=== PATIENT | female | born 1980 | race African-American/Black ===

== ENCOUNTER 2016-09-08 17:37 | Emergency (ER) | payer BC, OTHER ==
[~2016-09-08] VITALS: Ht 167.6 cm; Wt 90.0 kg
[~2016-09-08 17:37] MED LIST: BC FPOW12; PROV5TAB PO
[2016-09-08 17:38] VITALS: BP 131/85; PULSE 84; RESP 18; TEMP 98.4; O2SAT 100
[2016-09-08] MEDS ORDERED: LIDOCAINE HCL 1% 50 ML VIAL IM ONE (19:30)
[2016-09-08] MEDS ORDERED: cefTRIAXone 250 MG VIAL IM ONE (19:30)
[2016-09-08] MEDS ORDERED: AZITHROMYCIN PWD FOR SUSP 1 GM PACKET PO ONE (19:30)
--- NOTE | 2016-09-08 19:41 | PD ---
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 The patient states her boyfriend was diagnosed with gonorrhea yesterday after he went to the emergency department with symptoms of penile discharge and dysuria. The patient was treated at that time for antibiotics to cover gonorrhea and Chlamydia, she was advised to seek treatment. The patient called her primary physician, however, is unable to be evaluated until next week. The patient denies any current vaginal discharge, lower abdominal pain, dysuria, frequency, or urgency. The patient denies current , states her last menstrual cycle was August 17, 2016. PFSH Past Medical History Hx Anticoagulant Therapy: No Cardiovascular Problems: No Chemotherapy: No Cerebrovascular Accident: No Diabetes: No Diminished Hearing: No Endocrine: No Genitourinary: No Headaches: Yes Immune Disorder: No Reproductive: Yes (FIBROIDS) Respiratory: No ?: Not LMP: AUGUST 2016 : 4 Para: 2 Miscarriage: 1 : 1 Past Surgical History Hysterectomy: No Pacemaker: No Other Surgery: No Social History Alcohol Use: Yes (rare) Tobacco Use: Yes (occ) Substance Use: No Allergies-Medications (Allergen,Severity, Reaction): Coded Allergies: Reglan (Verified Allergy, Severe, SWELLING, 09/08/16) Zofran (Verified Allergy, Severe, Swelling, 09/08/16) swelling of the tongue Reported Meds & Prescriptions Reported Meds & Active Scripts Active Review of Systems Except as stated in HPI: all other systems reviewed are Neg General / Constitutional: No: Fever Cardiovascular: No: Chest Pain or Discomfort Respiratory: No: Shortness of Breath Gastrointestinal: No: Nausea, Vomiting, Abdominal Pain Genitourinary: No: Dysuria, Pelvic Pain, Discharge, Vaginal Bleeding Physical Exam Narrative GENERAL: Awake, alert, pleasant 36-year-old female who appears her stated age and is in no acute respiratory distress. SKIN: Warm and dry. HEAD: Atraumatic. Normocephalic. EYES: No injection or drainage. NECK: Trachea midline. No JVD. GASTROINTESTINAL: Abdomen soft, non-tender, nondistended. No rebound tenderness. No suprapubic tenderness. Back: No CVA tenderness. MUSCULOSKELETAL: No obvious deformities. No clubbing. No cyanosis. No edema. NEUROLOGICAL: Awake and alert. No obvious cranial nerve deficits. Motor grossly within normal limits. Normal speech. PSYCHIATRIC: Appropriate mood and affect; insight and judgment normal. Data Data Last Documented VS Vital Signs Date Time Temp Pulse Resp B/P Pulse Ox O2 Delivery O2 Flow Rate FiO2 09/08/16 17:38 98.4 84 18 131/85 100 Room Air Orders Azithromycin Powd Pack (Zithromax Powd P (09/08/16 19:30) Ceftriaxone Inj (Rocephin Inj) (09/08/16 19:30) Lidocaine 1% Inj (50 Ml) (Xylocaine 1% I (09/08/16 19:30) [facility] Medical Decision Making Medical Screen Exam Complete: Yes Emergency Medical Condition: Yes Medical Record Reviewed: Yes Differential Diagnosis Differential diagnosis includes sexual transmitted infection exposure, cervicitis, PID, vaginitis, UTI. Narrative Course The patient states she has a known exposure to gonorrhea, her boyfriend, was diagnosed yesterday with symptoms of penile discharge and dysuria. Patient is requesting treatment for gonorrhea and chlamydia. I had a discussion with the patient regarding pelvic examination, testing, versus just treating her for known exposure. Patient would prefer just to be treated. Therefore, patient was administered Rocephin and Zithromax. The patient is advised to follow-up with her primary physician and/or the health department as needed. Diagnosis Primary Impression: STD exposure Patient Instructions: General Instructions Additional Instructions: Follow-up with your primary physician and/or the health department. Wear condoms. Return for symptoms. Disposition: 01 DISCHARGE HOME Condition: Stable Errol Whitfield MD Sep 08, 2016 19:41
[2016-09-08 20:28] VITALS: BP 124/82
== END 2016-09-08 20:35 | disposition home or self-care (01) ==
LOC: NEPA 17:37
DX: Z20.2 Contact with and (suspected) exposure to infections with a predominantly sexual mode of transmission (principal); Z72.0 Tobacco use; Z87.42 Personal history of other diseases of the female genital tract
CPT/HCPCS: 96372; 99283; J0696

== ENCOUNTER 2016-11-03 09:01 | Emergency (ER) | payer BC ==
[~2016-11-03] VITALS: Ht 165.1 cm; Wt 87.5 kg
[2016-11-03 09:03] VITALS: BP 128/81; PULSE 97; RESP 16; TEMP 98.7; O2SAT 99
[2016-11-03 09:21] VITALS: BP 119/77; PULSE 95; RESP 18; O2SAT 100
[2016-11-03] MEDS ORDERED: SODIUM CHLOR 0.9% 1000 ML INJ 1,000 ML IV ONE (09:30)
[2016-11-03] MEDS ORDERED: PROCHLORPERAZINE INJ 10 MG/2 ML VIAL IV PUSH ONE (09:30)
--- NOTE | 2016-11-03 09:32 | PD ---
HPI Chief Complaint: GI Complaint Time Seen by Provider: 09:21 Travel History International Travel<30 days: No Contact w/Intl Traveler<30days: No Traveled to known affect area: No History of Present Illness HPI The patient was seen and examined in the presence of the nurse. This patient complains of nausea and vomiting. Duration 3 days. Severity is moderate. No diarrhea. No fever or abdominal or pelvic pain. She has not had her last menstrual period. No ill contacts. No alleviating factors. PFSH Past Medical History Hx Anticoagulant Therapy: No Cardiovascular Problems: No Chemotherapy: No Cerebrovascular Accident: No Diabetes: No Diminished Hearing: No Endocrine: No Gastrointestinal Disorders: No Genitourinary: No Headaches: Yes Immune Disorder: No Reproductive: Yes (FIBROIDS, OVARIAN CYSTS) Respiratory: No ?: Unknown LMP: SEPTEMBER 2016 : 4 Para: 2 Miscarriage: 1 : 1 Past Surgical History Surgical History: No Previous Surgery Hysterectomy: No Pacemaker: No Other Surgery: No Social History Alcohol Use: Yes (rare) Tobacco Use: No Substance Use: No Allergies-Medications (Allergen,Severity, Reaction): Coded Allergies: Reglan (Verified Allergy, Severe, SWELLING, 11/03/16) Zofran (Verified Allergy, Severe, Swelling, 11/03/16) swelling of the tongue Reported Meds & Prescriptions Reported Meds & Active Scripts Active No Active Prescriptions or Reported Medications Review of Systems General / Constitutional: No: Fever Eyes: No: Visual changes HENT: No: Headaches Cardiovascular: No: Chest Pain or Discomfort Respiratory: No: Shortness of Breath Gastrointestinal: Positive: Nausea, Vomiting, No: Abdominal Pain Genitourinary: No: Dysuria Musculoskeletal: No: Pain Skin: No Rash Neurologic: No: Weakness Psychiatric: No: Depression Endocrine: No: Polydipsia Hematologic/Lymphatic: No: Easy Bruising Physical Exam Narrative GENERAL: Well-nourished, well-developed patient in no apparent distress. SKIN: Focused skin assessment reveals no rash and nodules. Skin is Warm and dry. HEAD: Atraumatic. Normocephalic. EYES: Pupils equal and round. No scleral icterus. No injection or drainage. ENT: No nasal bleeding or discharge. Mucous membranes pink and moist. NECK: Trachea midline. No JVD. CARDIOVASCULAR: Regular rate and rhythm. No murmur appreciated. RESPIRATORY: No accessory muscle use. Clear to auscultation. Breath sounds equal bilaterally. GASTROINTESTINAL: Abdomen soft, non-tender, nondistended. Hepatic and splenic margins not palpable. MUSCULOSKELETAL: No obvious deformities. No clubbing. No cyanosis. No edema. NEUROLOGICAL: Awake and alert. No obvious cranial nerve deficits. Motor grossly within normal limits. Normal speech. PSYCHIATRIC: Appropriate mood and affect; insight and judgment normal. Data Data Last Documented VS Vital Signs Date Time Temp Pulse Resp B/P Pulse Ox O2 Delivery O2 Flow Rate FiO2 11/03/16 09:21 95 18 119/77 100 Room Air 11/03/16 09:03 98.7 Orders Sodium Chlor 0.9% 1000 Ml Inj (Ns 1000 M (11/03/16 09:30) Prochlorperazine Inj (Compazine Inj) (11/03/16 09:30) Iv Access Insert/Monitor (11/03/16 09:29) Complete Blood Count With Diff (11/03/16 09:29) Basic Metabolic Panel (Bmp) (11/03/16 09:29) Ed Urine Pregnancytest Poc (11/03/16 09:29) Protein Corrected Calcium(Pcc) (11/03/16 10:07) Labs Laboratory Tests Test 11/03/16 11/03/16 09:31 10:07 White Blood Count 7.4 TH/MM3 Red Blood Count 4.40 MIL/MM3 Hemoglobin 12.2 GM/DL Hematocrit 37.0 % Mean Corpuscular Volume 84.0 FL Mean Corpuscular Hemoglobin 27.8 PG Mean Corpuscular Hemoglobin 33.1 % Concent Red Cell Distribution Width 16.4 % Platelet Count 314 TH/MM3 Mean Platelet Volume 9.0 FL Neutrophils (%) (Auto) 63.0 % Lymphocytes (%) (Auto) 29.2 % Monocytes (%) (Auto) 6.8 % Eosinophils (%) (Auto) 0.6 % Basophils (%) (Auto) 0.4 % Neutrophils # (Auto) 4.7 TH/MM3 Lymphocytes # (Auto) 2.2 TH/MM3 Monocytes # (Auto) 0.5 TH/MM3 Eosinophils # (Auto) 0.0 TH/MM3 Basophils # (Auto) 0.0 TH/MM3 CBC Comment DIFF FINAL Differential Comment Sodium Level 139 MEQ/L Potassium Level 3.3 MEQ/L Chloride Level 109 MEQ/L Carbon Dioxide Level 20.7 MEQ/L Anion Gap 9 MEQ/L Blood Urea Nitrogen 5 MG/DL Creatinine 0.49 MG/DL Estimat Glomerular Filtration 175 ML/MIN Rate Random Glucose 109 MG/DL Calcium Level 7.4 MG/DL Protein Corrected Calcium 7.8 MG/DL Total Protein 6.3 GM/DL MDM Medical Decision Making Medical Screen Exam Complete: Yes Emergency Medical Condition: Yes Medical Record Reviewed: Yes Differential Diagnosis Dehydration, hyperemesis of , electrolyte abnormality, gastroenteritis , food poisoning Narrative Course I have reviewed the patient's electronic medical record. Her last visit here was August 2016 for STD exposure IV placed I gave her 1 L normal saline IV and 10 mg IV Compazine CBC reasonably normal Metabolic profile shows minimal abnormalities such as hypocalcemia that is minor is positive Abdomen is soft and benign and nontender Looks clinically euvolemic No vomiting while here Stable for outpatient DOG BEAUTICIAN care Additional Instructions: Follow-up with DOG BEAUTICIAN Small frequent bland meals Med/Other Pt SpecificInfo: Other Scripts No Active Prescriptions or Reported Meds Disposition: DISCHARGE HOME Condition: Stable Jimenez Mena MD November 03, 2016 09:32
[2016-11-03 09:46] LABS: AUTOMATED NEUTROPHIL # 4.7 TH/MM3 (1.8-7.7); BASOPHIL % 0.4 % (0.0-2.0); EOSINOPHIL % 0.6 % (0.0-4.0); HEMO FLAGS DIFF FINAL; LYMPH % 29.2 % (9.0-44.0); LYMPHOCYTE # 2.2 TH/MM3 (1.0-4.8); MEAN CORPUSCULAR HEMOGLOBIN 27.8 PG (27.0-34.0); MEAN CORPUSCULAR HGB CONC 33.1 % (32.0-36.0); MONO % 6.8 % (0.0-8.0); PLATELET COUNT 314 TH/MM3 (150-450); RED CELL DISTRIBUTION WIDTH 16.4 % (11.6-17.2); WHITE BLOOD COUNT 7.4 TH/MM3 (4.0-11.0)
[2016-11-03 10:49] LABS: BICARBONATE 20.7 MEQ/L (21.0-32.0); POTASSIUM 3.3 MEQ/L (3.5-5.1)
[2016-11-03 11:04] LABS: CALCIUM-PROTEIN CORRECTED 7.8 MG/DL (8.5-10.1)
== END 2016-11-03 13:59 | disposition home or self-care (01) ==
LOC: NEPE 09:01
DX: O21.9 Vomiting of pregnancy, unspecified (principal); Z3A.00 Weeks of gestation of pregnancy not specified
CPT/HCPCS: 80048; 84155; 84703; 85025; 96374; 99284; J0780; J7030

== ENCOUNTER 2016-11-09 16:44 | Emergency (ER) | payer BC ==
[~2016-11-09] VITALS: Ht 162.6 cm; Wt 87.0 kg
[2016-11-09 16:46] VITALS: BP 132/84; PULSE 112; RESP 20; TEMP 99.1; O2SAT 100
--- NOTE | 2016-11-09 17:07 | PD ---
HPI Chief Complaint: Related Problem Time Seen by Provider: 17:07 Travel History International Travel<30 days: No Contact w/Intl Traveler<30days: No Traveled to known affect area: No History of Present Illness HPI 36-year-old female presents to the emergency department for evaluation a right lower quadrant pain, cramping, and vaginal bleeding. Patient states 1 week ago it was confirmed that she was . This is her third . Patient states that she began having thick red blood clots yesterday and then today she noticed they were dark red/black. His concern because she has never bled with pregnancies in the past. She is also having a sharp cramping right lower quadrant pain. Denies any fever or chills. No urinary symptoms. No change in bowel habits. Patient has no other symptoms to report. PFSH Past Medical History Hx Anticoagulant Therapy: No Cardiovascular Problems: No Chemotherapy: No Cerebrovascular Accident: No Diabetes: No Diminished Hearing: No Endocrine: No Gastrointestinal Disorders: No Genitourinary: No Headaches: Yes Immune Disorder: No Reproductive: Yes (FIBROIDS, OVARIAN CYSTS) Respiratory: No ?: : 4 Para: 2 Miscarriage: 1 : 1 Past Surgical History Hysterectomy: No Pacemaker: No Other Surgery: No Social History Alcohol Use: Yes (rare) Tobacco Use: No Substance Use: No Allergies-Medications (Allergen,Severity, Reaction): Coded Allergies: Reglan (Verified Allergy, Severe, SWELLING, 11/09/16) Zofran (Verified Allergy, Severe, Swelling, 11/09/16) swelling of the tongue Reported Meds & Prescriptions Reported Meds & Active Scripts Active No Active Prescriptions or Reported Medications Review of Systems Except as stated in HPI: all other systems reviewed are Neg Physical Exam Narrative GENERAL: Well-nourished female patient, in no acute distress SKIN: Focused skin assessment warm/dry. HEAD: Atraumatic. Normocephalic. EYES: Pupils equal and round. No scleral icterus. No injection or drainage. ENT: No nasal bleeding or discharge. Mucous membranes pink and moist. NECK: Trachea midline. No JVD. CARDIOVASCULAR: Tachycardic rate and rhythm. No murmur appreciated. RESPIRATORY: No accessory muscle use. Clear to auscultation. Breath sounds equal bilaterally. GASTROINTESTINAL: Abdomen soft, nondistended suprapubic and right lower quadrant tenderness to palpation. No rebound tenderness. Mild guarding.. Hepatic and splenic margins not palpable. MUSCULOSKELETAL: No obvious deformities. No clubbing. No cyanosis. No edema. NEUROLOGICAL: Awake and alert. No obvious cranial nerve deficits. Motor grossly within normal limits. Normal speech. PSYCHIATRIC: Appropriate mood and affect; insight and judgment normal. Data Data Last Documented VS Vital Signs Date Time Temp Pulse Resp B/P Pulse Ox O2 Delivery O2 Flow Rate FiO2 11/09/16 19:15 94 18 110/80 100 Room Air 11/09/16 16:46 99.1 Orders Basic Metabolic Panel (Bmp) (11/09/16 17:08) Beta Hcg (Quant/Titer) (11/09/16 17:08) Complete Blood Count With Diff (11/09/16 17:08) Prothrombin Time / Inr (Pt) (11/09/16 17:08) Act Partial Throm Time (Ptt) (11/09/16 17:08) Urinalysis - C+S If Indicated (11/09/16 17:08) Iv Access Insert/Monitor (11/09/16 17:08) Sodium Chlor 0.9% 1000 Ml Inj (Ns 1000 M (11/09/16 17:08) Ed Urine Pregnancytest Poc (11/09/16 17:08) Complete Rh (11/09/16 17:08) Urine Culture (11/09/16 17:00) Us Pelvis (Ques Preg/Ectopic) (11/09/16 ) Labs Laboratory Tests Test 11/09/16 11/09/16 17:00 17:15 Urine Color YELLOW Urine Turbidity HAZY Urine pH 6.0 Urine Specific [place] 1.031 Urine Protein 100 mg/dL Urine Glucose (UA) NEG mg/dL Urine Ketones TRACE mg/dL Urine Occult Blood MOD Urine Nitrite NEG Urine Bilirubin NEG Urine Urobilinogen 2.0 MG/DL Urine Leukocyte Esterase MOD Urine RBC 4 /hpf Urine WBC 11 /hpf Urine Squamous Epithelial 9 /hpf Cells Urine Bacteria MANY /hpf Urine Hyaline Casts 16 /lpf Urine Mucus MOD /lpf Microscopic Urinalysis Comment CULTURE INDICATED White Blood Count 9.2 TH/MM3 Red Blood Count 4.45 MIL/MM3 Hemoglobin 12.3 GM/DL Hematocrit 37.6 % Mean Corpuscular Volume 84.4 FL Mean Corpuscular Hemoglobin 27.6 PG Mean Corpuscular Hemoglobin 32.7 % Concent Red Cell Distribution Width 16.2 % Platelet Count 299 TH/MM3 Mean Platelet Volume 8.5 FL Neutrophils (%) (Auto) 63.1 % Lymphocytes (%) (Auto) 28.5 % Monocytes (%) (Auto) 7.5 % Eosinophils (%) (Auto) 0.3 % Basophils (%) (Auto) 0.6 % Neutrophils # (Auto) 5.8 TH/MM3 Lymphocytes # (Auto) 2.6 TH/MM3 Monocytes # (Auto) 0.7 TH/MM3 Eosinophils # (Auto) 0.0 TH/MM3 Basophils # (Auto) 0.1 TH/MM3 CBC Comment DIFF FINAL Differential Comment Prothrombin Time 11.1 SEC Prothromb Time International 1.0 RATIO Ratio Activated Partial 29.0 SEC Thromboplast Time Sodium Level 134 MEQ/L Potassium Level 3.5 MEQ/L Chloride Level 101 MEQ/L Carbon Dioxide Level 25.1 MEQ/L Anion Gap 8 MEQ/L Blood Urea Nitrogen 6 MG/DL Creatinine 0.77 MG/DL Estimat Glomerular Filtration 104 ML/MIN Rate Random Glucose 106 MG/DL Calcium Level 9.1 MG/DL Human Chorionic Gonadotropin, [address]36 MIU/ML Quant Blood Type A POSITIVE Rho(D) Type POSITIVE MDM Medical Decision Making Medical Screen Exam Complete: Yes Emergency Medical Condition: Yes Medical Record Reviewed: Yes Differential Diagnosis Threatened miscarriage versus missed versus ectopic versus postcoital bleeding Narrative Course 36-year-old female presents to emergency department for evaluation of vaginal bleeding a right lower quadrant pain. Patient appears without distress. She is utterly tachycardic. She does have right lower quadrant tenderness. Lab work is ordered. Blood is in the vaginal vault. Laboratory Tests Test 11/09/16 11/09/16 17:00 17:15 Urine Color YELLOW Urine Turbidity HAZY Urine pH 6.0 Urine Specific [place] 1.031 Urine Protein 100 mg/dL Urine Glucose (UA) NEG mg/dL Urine Ketones TRACE mg/dL Urine Occult Blood MOD Urine Nitrite NEG Urine Bilirubin NEG Urine Urobilinogen 2.0 MG/DL Urine Leukocyte Esterase MOD Urine RBC 4 /hpf Urine WBC 11 /hpf Urine Squamous Epithelial 9 /hpf Cells Urine Bacteria MANY /hpf Urine Hyaline Casts 16 /lpf Urine Mucus MOD /lpf Microscopic Urinalysis Comment CULTURE INDICATED White Blood Count 9.2 TH/MM3 Red Blood Count 4.45 MIL/MM3 Hemoglobin 12.3 GM/DL Hematocrit 37.6 % Mean Corpuscular Volume 84.4 FL Mean Corpuscular Hemoglobin 27.6 PG Mean Corpuscular Hemoglobin 32.7 % Concent Red Cell Distribution Width 16.2 % Platelet Count 299 TH/MM3 Mean Platelet Volume 8.5 FL Neutrophils (%) (Auto) 63.1 % Lymphocytes (%) (Auto) 28.5 % Monocytes (%) (Auto) 7.5 % Eosinophils (%) (Auto) 0.3 % Basophils (%) (Auto) 0.6 % Neutrophils # (Auto) 5.8 TH/MM3 Lymphocytes # (Auto) 2.6 TH/MM3 Monocytes # (Auto) 0.7 TH/MM3 Eosinophils # (Auto) 0.0 TH/MM3 Basophils # (Auto) 0.1 TH/MM3 CBC Comment DIFF FINAL Differential Comment Prothrombin Time 11.1 SEC Prothromb Time International 1.0 RATIO Ratio Activated Partial 29.0 SEC Thromboplast Time Sodium Level 134 MEQ/L Potassium Level 3.5 MEQ/L Chloride Level 101 MEQ/L Carbon Dioxide Level 25.1 MEQ/L Anion Gap 8 MEQ/L Blood Urea Nitrogen 6 MG/DL Creatinine 0.77 MG/DL Estimat Glomerular Filtration 104 ML/MIN Rate Random Glucose 106 MG/DL Calcium Level 9.1 MG/DL Human Chorionic Gonadotropin, [address] MIU/ML Quant Blood Type A POSITIVE Rho(D) Type POSITIVE Single viable intrauterine at 7 weeks 6 days gestational age. Subchorionic hemorrhage demonstrated. Left ovarian cyst, likely corpus luteal cyst. No evidence of ectopic. Patient is discharged him to follow-up with OB/ OCCUPATIONAL HEALTH NURSE MANAGER. She agrees to return immediately with any acute worsening symptoms. Diagnosis Primary Impression: Qualified Code: Z3A.01 - Less than 8 weeks gestation of Additional Impression: Subchorionic hemorrhage in first trimester Referrals: Academic Affairs Manager Patient Instructions: First Trimester (ED), General Instructions, Subchorionic Hemorrhage (ED) Departure Forms: Tests/Procedures, Work Release Enter return to work date: November 13, 2016 Additional Instructions: Pelvic rest Avoid heavy lifting, bending, twisting Follow up with your FILM SOUND COORDINATOR Return to ED with any acute worsening of symptoms Med/Other Pt SpecificInfo: No Change to Meds Scripts No Active Prescriptions or Reported Meds Disposition: DISCHARGE HOME Condition: Stable MonrealAyleen guillen MACARIO November 09, 2016 17:07
[2016-11-09] MEDS ORDERED: SODIUM CHLOR 0.9% 1000 ML INJ 1,000 ML IV SCH (17:08)
[2016-11-09 17:35] LABS: AUTOMATED NEUTROPHIL # 5.8 TH/MM3 (1.8-7.7); BASOPHIL # 0.1 TH/MM3 (0-0.2); BASOPHIL % 0.6 % (0.0-2.0); EOSINOPHIL % 0.3 % (0.0-4.0); HEMATOCRIT 37.6 % (35.0-46.0); HEMO FLAGS DIFF FINAL; LYMPH % 28.5 % (9.0-44.0); LYMPHOCYTE # 2.6 TH/MM3 (1.0-4.8); MEAN CELL VOLUME 84.4 FL (80.0-100.0); MEAN CORPUSCULAR HEMOGLOBIN 27.6 PG (27.0-34.0); MEAN CORPUSCULAR HGB CONC 32.7 % (32.0-36.0); MONO % 7.5 % (0.0-8.0); NEUT % 63.1 % (16.0-70.0); PLATELET COUNT 299 TH/MM3 (150-450); RED BLOOD COUNT 4.45 MIL/MM3 (4.00-5.30); RED CELL DISTRIBUTION WIDTH 16.2 % (11.6-17.2); WHITE BLOOD COUNT 9.2 TH/MM3 (4.0-11.0)
[2016-11-09 17:43] LABS: BACTERIA, URINE MANY /hpf; BLOOD, URINE MOD (NEG); COMMENT (UR) CULTURE INDICATED; CULTURE IF INDICATED CULTURE INDICATED; GLUCOSE,URINE NEG (NEG); HYALINE CAST, URINE 16 /lpf (RARE); KETONE, URINE TRACE mg/dL (NEG); MUCUS URINE MOD /lpf (OCC); NITRITE,URINE NEG (NEG); SQUAMOUS EPITHELIAL CELL URINE 9 /hpf (0-5); URINE COLOR YELLOW (YELLW/STRAW)
[2016-11-09 17:50] LABS: BICARBONATE 25.1 MEQ/L (21.0-32.0); POTASSIUM 3.5 MEQ/L (3.5-5.1)
[2016-11-09 17:57] LABS: PROTHROMBIN TIME - PATIENT 11.1 SEC (9.8-11.6)
[2016-11-09 19:15] VITALS: BP 110/80; PULSE 94; RESP 18; O2SAT 100
--- NOTE | 2016-11-09 21:04 | RADRPT ---
EXAM DATE/TIME: 11/09/2016 19:59 [facility] COMPARISON: No previous studies available for comparison. INDICATIONS : Bleeding and pelvic pain with . LAB(S): Beta-hC MEDICAL HISTORY : . Uterine fibroids. Ovarian cysts. Headaches. Miscarriage. SURGICAL HISTORY : None. ENCOUNTER: Initial ACUITY: 1 day PAIN SCORE: 7/10 LOCATION: Bilateral pelvis MEASUREMENTS: UTERUS: 10.7 x 7.3 x 6.1 cm ENDOMETRIAL STRIPE: >20 mm RIGHT OVARY: 2.7 x 2.1 x 2.1 cm LEFT OVARY: 5.3 x 3.6 x 3.7 cm FREE FLUID: No CROWN RUMP LENGTH: 1.5 cm = 7 WKS 6 DAYS FHR: 163 BPM FINDINGS: UTERUS: Yolk sac, gestational sac and pole noted. Many-rump likely 1.5 cm corresponds to a gestational age of 7 weeks 6 days. heart tones are demonstrated. There is an approximately 3.5 x 1.4 x 2.8 cm subchorionic hemorrhage. RIGHT OVARY: Ovary contains no mass or significant cystic lesion. LEFT OVARY: 3.2 x 2.6 x 2.4 cm cyst, presumably corpus luteal cyst. MISCELLANEOUS: No free fluid. CONCLUSION: 1. Single, viable intrauterine at 7 weeks 6 days gestational age. Subchorionic hemorrhage d emonstrated. 2. Left ovarian cyst, most likely corpus luteal cyst. No evidence of ectopic. Oscar Earl MD on November 09, 2016 at 21:01 Board Certified Radiologist. This report was verified electronically.
== END 2016-11-09 21:38 | disposition home or self-care (01) ==
LOC: NEPD 16:44
DX: O20.8 Other hemorrhage in early pregnancy (principal); R10.31 Right lower quadrant pain; Z3A.01 Less than 8 weeks gestation of pregnancy
CPT/HCPCS: 76700; 80048; 81001; 84702; 84703; 85025; 85610; 85730; 87086; 99285; J7030

== ENCOUNTER 2017-02-07 09:13 | Observation (INO) | payer MEDICAID ==
[~2017-02-07] VITALS: Ht 160 cm; Wt 89.0 kg
[~2017-02-07 09:13] MED LIST changes: -BC FPOW12; +PNV-TAB PO; -PROV5TAB PO
[2017-02-07 13:00] VITALS: RESP 20; TEMP 98.5
[2017-02-07] MEDS: LACTATED RINGER'S 1000 ML INJ 1,000 ML IV SCH ×2 (13:00→23:00)
--- NOTE | 2017-02-07 13:01 | PD.OB.ANTE ---
Objective Physical Exam GENERAL: Well-nourished, well-developed patient. CARDIOVASCULAR: Regular rate and rhythm without murmurs, gallops, or rubs. RESPIRATORY: Breath sounds equal bilaterally. No accessory muscle use. ABDOMEN/GI: Abdomen soft, non-tender. Fundus: [-] GENITOURINARY: External Genitalia: intact and normal in appearance Cervix: [-] Dilatation: [-] Effacement: [-] Station: [-] Presentation: [-] Membranes: [-] Uterine Contractions: [-] FHT's: Category: [-] Baseline: [-] Reactive: [-] Variability: [-] Decels: [-] EXTREMITIES: No cyanosis or edema, non-tender, without signs of DVT. Eko,Penelope Julien MD R2 Feb 07, 2017 13:01
[2017-02-07 13:05] VITALS: BP 103/83; PULSE 96
[2017-02-07 13:20] LABS: AUTOMATED NEUTROPHIL # 6.7 TH/MM3 (1.8-7.7); BASOPHIL % 0.2 % (0.0-2.0); EOSINOPHIL # 0.2 TH/MM3 (0-0.4); HEMATOCRIT 31.2 % (35.0-46.0); HEMO FLAGS DIFF FINAL; LYMPHOCYTE # 2.4 TH/MM3 (1.0-4.8); MEAN CELL VOLUME 88.8 FL (80.0-100.0); MEAN CORPUSCULAR HEMOGLOBIN 28.7 PG (27.0-34.0); MEAN CORPUSCULAR HGB CONC 32.3 % (32.0-36.0); MONO % 6.8 % (0.0-8.0); PLATELET COUNT 271 TH/MM3 (150-450); RED BLOOD COUNT 3.52 MIL/MM3 (4.00-5.30); RED CELL DISTRIBUTION WIDTH 15.2 % (11.6-17.2)
[2017-02-07 13:27] LABS: BLOOD, URINE NEG (NEG); COMMENT (UR) CULT NOT INDICATED; CULTURE IF INDICATED CULT NOT INDICATED; GLUCOSE,URINE NEG (NEG); KETONE, URINE NEG (NEG); NITRITE,URINE NEG (NEG); PH, URINE 7.5 (5.0-8.5); URINE COLOR YELLOW (YELLW/STRAW)
[2017-02-07 13:44] LABS: BICARBONATE 24.9 MEQ/L (21.0-32.0); POTASSIUM 3.9 MEQ/L (3.5-5.1)
--- NOTE | 2017-02-07 13:55 | HHI.HP ---
HPI Chief Complaint Incompetent cervix Date Seen: Feb 07, 2017 Travel History International Travel<30 Days: No Contact w/Intl Traveler<30Days: No Known Affected Area: No History of Present Illness HPI Pt is a 36 y/o A3 at 20/2 weeks gestation that was transferred to the [place] [facility] ED from OB diagnostics for possible cervical cerclage. The pt was last seen by her OB provider, Dr. Moran, at the [facility] on 01/19/17 who determined that her cervix was dilated to 1-2 cm. On further questioning and EMR review, it was discovered that the pt had a uterine inversion in 2007 after a spontaneous vaginal delivery. She had to be moved to the OR for inversion. During the procedure, the cervix was stabilized with ring forceps and was sutured for tearing that occurred. The patient presented for her OB diagnostics appointment with MFM specialist, Dr. Sanon, where feet were found in the endocervical canal surrounded by membrane on ultrasound. Dr. Sanon contacted the pt's OB provider with strong recommendation for a cervical cerclage. History Past Medical History Medical History: Denies Significant Hx Obstetric History Obstetric History 2 fullterm 2 abortions 1 miscarriage Past Surgical History Narrative Surgical Surgical uterine inversion after spontaneous vaginal delivery of second child Family History Narrative Family History No family history of a bleeding disorder Maternal grandfather had diabetes Social History Alcohol Use: No Tobacco Use: No Substance Abuse: No Allergies-Medications (Allergen,Severity, Reaction): Coded Allergies: metoclopramide (Unverified Allergy, Severe, SWELLING, 01/30/17) ondansetron (Unverified Allergy, Severe, Swelling, 01/30/17) swelling of the tongue Home Meds Active Scripts Vit W/ Ferrous Fumara (Pnv-Select 27-0.6-0.4 mg) 1 Tab Tab, 1 TAB PO DAILY, #30 BOTTLE 11 Refills Prov:Penelope Moran MD R2 01/22/17 Review of Systems Except as stated in HPI: all other systems reviewed are Neg General / Constitutional: No: Fever, Chills Eyes: No: Blurred Vision, Visual changes HENT: No: Headaches Cardiovascular: No: Chest Pain or Discomfort Respiratory: No: Short of Breath Gastrointestinal: No: Nausea, Vomiting, Abdominal Pain Genitourinary: Pelvic Pain (occasional suprapubic pain ), No: Dysuria, Discharge, Vaginal Bleeding Physical Exam Vital Signs Date Time Temp Pulse Resp B/P (MAP) Pulse Ox O2 Delivery O2 Flow Rate FiO2 02/07/17 13:05 96 103/83 (90) 02/07/17 13:00 98.5 20 Narrative GENERAL: Well-nourished, well-developed patient. SKIN: Warm and dry. HEAD: Normocephalic and atraumatic. EYES: No scleral icterus. No injection or drainage. ENT: No nasal drainage noted. Mucous membranes pink. Airway patent. NECK: Supple, trachea midline. No JVD. CARDIOVASCULAR: Regular rate and rhythm without murmurs, gallops, or rubs. RESPIRATORY: Breath sounds equal bilaterally. No accessory muscle use. ABDOMEN/GI: Abdomen soft, non-tender, bowel sounds present, no rebound, no guarding Gravid to 20 weeks size GENITOURINARY: FHT's: 140's EXTREMITIES: No cyanosis or edema. BACK: Nontender without obvious deformity. No CVA tenderness. NEUROLOGICAL: Awake and alert. Motor and sensory grossly within normal limits. Five out of 5 muscle strength in all muscle groups. Normal speech. Caprini VTE Risk Assessment Caprini VTE Risk Assessment: Mod/High Risk (score >= 2) Caprini Risk Assessment Model Point Value = 1 Point Value = 2 Point Value = 3 Point Value = 5 Age 41-60 Minor surgery BMI > 25 kg/m2 Swollen legs Varicose veins or History of unexplained or recurrent spontaneous Oral contraceptives or hormone replacement Sepsis (< 1 month) Serious lung disease, including pneumonia (< 1 month) Abnormal pulmonary function Acute myocardial infarction Congestive heart failure (< 1 month) History of inflammatory bowel disease Medical patient at bed rest Age 61-74 Arthroscopic surgery Major open surgery (> 45 min) Laparoscopic surgery (> 45 min) Malignancy Confined to bed (> 72 hours) Immobilizing plaster cast Central venous access Age >= 75 History of VTE Family history of VTE Factor V Leiden Prothrombin [id number] Lupus anticoagulant Anticardiolipin antibodies Elevated serum homocysteine Heparin-induced thrombocytopenia Other congenital or acquired thrombophilia Stroke (< 1 month) Elective arthroplasty Hip, pelvis, or leg fracture Acute spinal cord injury (< 1 month) Prophylaxis Regimen Total Risk Factor Score Risk Level Prophylaxis Regimen 0-1 Low Early ambulation 2 Moderate Order ONE of the following: *Sequential Compression Device (SCD) *Heparin 5000 units SQ BID 3-4 Higher Order ONE of the following medications: *Heparin 5000 units SQ TID *Enoxaparin/Lovenox 40 mg SQ daily (WT < 150 kg, CrCl > 30 mL/min) *Enoxaparin/Lovenox 30 mg SQ daily (WT < 150 kg, CrCl > 10-29 mL/min) *Enoxaparin/Lovenox 30 mg SQ BID (WT < 150 kg, CrCl > 30 mL/min) AND/OR *Sequential Compression Device (SCD) 5 or more Highest Order ONE of the following medications: *Heparin 5000 units SQ TID (Preferred with Epidurals) *Enoxaparin/Lovenox 40 mg SQ daily (WT < 150 kg, CrCl > 30 mL/min) *Enoxaparin/Lovenox 30 mg SQ daily (WT < 150 kg, CrCl > 10-29 mL/min) *Enoxaparin/Lovenox 30 mg SQ BID (WT < 150 kg, CrCl > 30 mL/min) AND *Sequential Compression Device (SCD) Data Data Vital Signs Reviewed: Yes Orders Orders Us Ob Complete/Level Ii W/Tv (02/07/17 ) Code Status (02/07/17 12:52) Vital Signs (Adult) .Per protocol (02/07/17 12:52) Complete Blood Count With Diff (02/07/17 12:52) Urinalysis - C+S If Indicated (02/07/17 12:52) Type And Screen (02/07/17 12:52) Specimen To Be Collected PRN (02/07/17 12:52) Prothrombin Time / Inr (Pt) (02/07/17 12:52) Basic Metabolic Panel (Bmp) (02/07/17 12:52) ^ Other Nursing Orders (02/07/17 12:52) Indomethacin (Indocin) (02/07/17 13:00) Lactated Ringer's 1000 Ml Inj (Lr 1000 M (02/07/17 13:00) Place In Observation (02/07/17 ) Activity Bed Rest (02/07/17 13:01) Diet Regular Basic (02/07/17 Lunch) Us Ob Limited (02/08/17 06:00) Clindamycin Inj (Cleocin Inj) (02/07/17 13:15) Npo After Midnight W/ Po Meds (02/07/17 Lunch) Urinary Catheter Management CORA.Q8H (02/07/17 13:14) Labs Laboratory Tests Test 02/07/17 12:30 02/07/17 12:57 White Blood Count 10.0 Red Blood Count 3.52 Hemoglobin 10.1 Hematocrit 31.2 Mean Corpuscular Volume 88.8 Mean Corpuscular Hemoglobin 28.7 Mean Corpuscular Hemoglobin Concent 32.3 Red Cell Distribution Width 15.2 Platelet Count 271 Mean Platelet Volume 8.2 Neutrophils (%) (Auto) 67.0 Lymphocytes (%) (Auto) 24.0 Monocytes (%) (Auto) 6.8 Eosinophils (%) (Auto) 2.0 Basophils (%) (Auto) 0.2 Neutrophils # (Auto) 6.7 Lymphocytes # (Auto) 2.4 Monocytes # (Auto) 0.7 Eosinophils # (Auto) 0.2 Basophils # (Auto) 0.0 CBC Comment DIFF FINAL Differential Comment Assessment/Plan Assessment and Plan 36 y/o A3 at 20/2 weeks gestation being admitted on observation for possible cervical cerclage secondary to an incompetent cervix. Dr. Jones, the PHARMACEUTICAL SPECIALTY REPRESENTATIVE specialist environmental engineering intern, has been consulted and has provided recommendations for further management. Plan -Admit on observation to OB hospitalist team, Dr. Jones consulting -Bed rest on trendelenburg position -No bimanual or speculum cervical exams -Insert vázquez catether -Indomethacin 25mg PO q6H to reduce amniotic fluid -Cleocin 900mg Q8H -LR at 125 ml/hr -Type and screen -CBC, BMP, UA with reflex culture -Regular adult diet -NPO at midnight for possible procedure in the am -Repeat ultrasound 24hrs after original ultrasound -SCDs for DVT prophylaxis Discharge Planning Anticipate discharge in 1-2 days Penelope Moran MD R2 Feb 07, 2017 13:55
[2017-02-07] MEDS: CLINDAMYCIN INJ 900 MG in SODIUM CHLORIDE 0.9% INJ 100 ML IV SCH ×2 (14:06→22:30)
[2017-02-07] MEDS: INDOMETHACIN 25 MG CAP PO SCH ×2 (14:06→20:30)
[2017-02-07 17:35] VITALS: BP 107/68; PULSE 108; RESP 18; TEMP 98.3
[2017-02-07 19:23] VITALS: BP 124/74; PULSE 107
[2017-02-07 19:24] VITALS: TEMP 98.7
[2017-02-08] VITALS (8 sets, daily range): BP systolic 99–129; BP diastolic 61–71; PULSE 99–106; RESP 16–19; TEMP 98.5–99.3
[2017-02-08] MEDS: INDOMETHACIN 25 MG CAP PO SCH ×4 (02:03→19:41)
[2017-02-08] MEDS: CLINDAMYCIN INJ 900 MG in SODIUM CHLORIDE 0.9% INJ 100 ML IV SCH ×3 (05:57→21:58)
--- NOTE | 2017-02-08 08:23 | PD.OB.ANTE ---
Subjective Diagnosis: (1) Incompetent cervix Diagnosis: Principal Interval History Pt did well overnight in trendelenburg position. She denied headache or shortness of breath. She feels less suprapubic pressure.No clinical signs of systemic infection. Only complaint this morning is lateral lower abdominal pain on both sides. On further discussion with the patient and pt's nurse, we found out that she is currently having housing issues and will benefit from social work lecturer. Antepartum ROS: Reports: movement normal, Denies: Loss of fluid, Vaginal bleeding, Contractions Objective Vital Signs Vital Signs Date Time Temp Pulse Resp B/P (MAP) Pulse Ox O2 Delivery O2 Flow Rate FiO2 02/08/17 07:45 98.5 18 02/08/17 07:34 99 110/62 (78) 02/08/17 02:04 99.3 16 02/08/17 02:04 106 116/61 (79) 02/07/17 19:24 98.7 02/07/17 19:23 107 124/74 (91) 02/07/17 17:35 98.3 18 02/07/17 17:35 108 107/68 (81) 02/07/17 13:05 96 103/83 (90) 02/07/17 13:00 98.5 20 Lab & Micro Results Test 02/07/17 12:30 02/07/17 12:57 Urine Color YELLOW Urine Turbidity CLEAR Urine pH 7.5 Urine Specific [place] 1.018 Urine Protein NEG mg/dL Urine Glucose (UA) NEG mg/dL Urine Ketones NEG mg/dL Urine Occult Blood NEG Urine Nitrite NEG Urine Bilirubin NEG Urine Urobilinogen LESS THAN 2.0 MG/DL Urine Leukocyte Esterase NEG Urine RBC 1 /hpf Urine WBC 1 /hpf Microscopic Urinalysis Comment CULT NOT INDICATED White Blood Count 10.0 TH/MM3 Red Blood Count 3.52 MIL/MM3 Hemoglobin 10.1 GM/DL Hematocrit 31.2 % Mean Corpuscular Volume 88.8 FL Mean Corpuscular Hemoglobin 28.7 PG Mean Corpuscular Hemoglobin Concent 32.3 % Red Cell Distribution Width 15.2 % Platelet Count 271 TH/MM3 Mean Platelet Volume 8.2 FL Neutrophils (%) (Auto) 67.0 % Lymphocytes (%) (Auto) 24.0 % Monocytes (%) (Auto) 6.8 % Eosinophils (%) (Auto) 2.0 % Basophils (%) (Auto) 0.2 % Neutrophils # (Auto) 6.7 TH/MM3 Lymphocytes # (Auto) 2.4 TH/MM3 Monocytes # (Auto) 0.7 TH/MM3 Eosinophils # (Auto) 0.2 TH/MM3 Basophils # (Auto) 0.0 TH/MM3 CBC Comment DIFF FINAL Differential Comment Blood Urea Nitrogen 4 MG/DL Creatinine 0.53 MG/DL Random Glucose 67 MG/DL Calcium Level 9.6 MG/DL Sodium Level 138 MEQ/L Potassium Level 3.9 MEQ/L Chloride Level 104 MEQ/L Carbon Dioxide Level 24.9 MEQ/L Anion Gap 9 MEQ/L Estimat Glomerular Filtration Rate 160 ML/MIN Physical Exam GENERAL: Well-nourished, well-developed patient. CARDIOVASCULAR: Regular rate and rhythm without murmurs, gallops, or rubs. RESPIRATORY: Breath sounds equal bilaterally. No accessory muscle use. ABDOMEN/GI: Abdomen soft, non-tender. Fundus: soft and non-tender GENITOURINARY: External Genitalia: intact and normal in appearance FHT's: EXTREMITIES: No cyanosis or edema, non-tender, without signs of DVT. NEURO/PSYCH: Crying during visit Assessment and Plan Assessment and Plan 36 y/o A3 at 20/2 weeks gestation being admitted on observation for possible cervical cerclage secondary to an incompetent cervix. Dr. Hobbs is on board for management. Plan -Continue bed rest on trendelenburg position -No bimanual or speculum cervical exams -FHR Qshift -Continue vázquez catether -Continue Indomethacin 25mg PO q6H -Cleocin 900mg Q8H -LR at 125 ml/hr -NPO -Repeat ultrasound 24hrs after original ultrasound -SCDs for DVT prophylaxis -collections manager consulted to assist with social needs; will also discuss [employer] with the pt Penelope Moran MD R2 Feb 08, 2017 08:23
[2017-02-08] MEDS: LACTATED RINGER'S 1000 ML INJ 1,000 ML IV SCH ×2 (14:27→14:28)
[2017-02-09] VITALS (21 sets, daily range): BP systolic 97–116; BP diastolic 55–93; PULSE 84–110; RESP 16–18; TEMP 97.5–99.1; O2SAT 100
[2017-02-09] MEDS: INDOMETHACIN 25 MG CAP PO SCH ×4 (02:04→20:15)
[2017-02-09] MEDS: LACTATED RINGER'S 1000 ML INJ 1,000 ML IV SCH ×4 (02:04→22:39)
[2017-02-09] MEDS: CLINDAMYCIN INJ 900 MG in SODIUM CHLORIDE 0.9% INJ 100 ML IV SCH ×3 (05:51→22:39)
[2017-02-09] MEDS ORDERED: FAMOTIDINE 20 MG/2 ML VIAL ONE (07:03)
--- NOTE | 2017-02-09 08:56 | PD.OB.ANTE ---
Subjective Diagnosis: (1) Incompetent cervix Diagnosis: Principal Interval History Pt was seen in the holding room of before going to the OR for the cerclage procedure. She did well overnight and has no complaints. She does not feel anymore pressure in her suprapubic region. Antepartum ROS: Reports: movement normal, Denies: New complaints, Loss of fluid, Vaginal bleeding, Contractions Objective Vital Signs Vital Signs Date Time Temp Pulse Resp B/P (MAP) Pulse Ox O2 Delivery O2 Flow Rate FiO2 02/09/17 05:50 110 100 02/09/17 05:48 108 114/71 (85) 02/09/17 05:48 16 02/09/17 05:47 98.4 02/09/17 02:06 99.1 16 02/09/17 02:04 104 97/55 (69) 02/08/17 19:30 100 129/71 (90) 02/08/17 16:54 17 02/08/17 16:53 102 99/65 (76) 02/08/17 11:08 98.9 19 02/08/17 11:07 102 111/68 (82) Intake & Output 02/09/17 02/09/17 07:00 19:00 Intake Total 1000 ml Output Total 1000 ml Balance 0 ml Other 1000 ml Output Other 1000 ml Physical Exam GENERAL: Well-nourished, well-developed patient. CARDIOVASCULAR: Regular rate and rhythm without murmurs, gallops, or rubs. RESPIRATORY: Breath sounds equal bilaterally. No accessory muscle use. ABDOMEN/GI: Abdomen soft, non-tender. Fundus: soft and non-tender EXTREMITIES: No cyanosis or edema, non-tender, without signs of DVT. NEURO/PSYCH: Alert and oriented, very calm Assessment and Plan Problem List: (1) Incompetent cervix ICD Codes: N88.3 - Incompetence of cervix uteri Assessment and Plan 36 y/o A3 at 20/2 weeks gestation was admitted on observation for cervical cerclage secondary to an incompetent cervix. Procedure was performed by Dr. Hobbs under spinal anesthesia on 02/09/17 Plan -Continue bed rest on Trendelenburg position -FHR Qshift -Continue vázquez catether -Stop Indomethacin 25mg PO q6H -Continue Cleocin 900mg Q8H -LR at 100 mls/hr - will most likely discontinue later today or tomorrow -Regular adult diet -SCDs for DVT prophylaxis Disposition: Pt to continue bedrest for a few more days in the hospital D[facility] Dr[facility] Hobbs [facility], 2017 08:56
[2017-02-09] MEDS ORDERED: DO NOT ADM ANY ANTICOAGULANT DRUGS PRN (09:45)
[2017-02-09] MEDS ORDERED: ENOXAPARIN SODIUM 40 MG/0.4 ML SYRINGE SQ SCH (09:45)
[2017-02-09] MEDS ORDERED: LACTATED RINGER'S 1000 ML INJ 1,000 ML IV SCH (10:15)
[2017-02-09] MEDS ORDERED: LACTATED RINGER'S 1000 ML INJ 1,000 ML IV ONE (10:30)
[2017-02-09] MEDS ORDERED: oxyCODONE/ACETAMINOPHEN 5 MG/325 MG TAB PO PRN (11:45)
[2017-02-09] MEDS ORDERED: ePHEDrine/NS 25 MG/5 ML SYR IV ONE (12:00)
[2017-02-09] MEDS ORDERED: PHENYLEPH/NS 1000 MCG/10 ML SYR IV ONE (12:00)
[2017-02-09] MEDS: ACETAMINOPHEN 1000 MG/100 ML VIAL IV PRN (13:17)
[2017-02-10] VITALS (12 sets, daily range): BP systolic 111–128; BP diastolic 50–72; PULSE 96–106; RESP 16–18; TEMP 97.8–99.2
[2017-02-10] MEDS: INDOMETHACIN 25 MG CAP PO SCH ×3 (00:27→08:01)
[2017-02-10] MEDS: CLINDAMYCIN INJ 900 MG in SODIUM CHLORIDE 0.9% INJ 100 ML IV SCH (06:06)
--- NOTE | 2017-02-10 09:02 | PD.OB.ANTE ---
Subjective Diagnosis: (1) Incompetent cervix Diagnosis: Principal Interval History No acute issues overnight. Vitals are stable, patient remains afebrile. She denies any contractions, vaginal bleeding or discharge, gush or leaking of fluid. She remains in Trendelenburg position. She denies any chest pain, shortness of breath, or leg pain. She is tolerating by mouth. Antepartum ROS: Reports: movement normal, Denies: New complaints, Loss of fluid, Vaginal bleeding, Contractions (Tova Mccauley MD, R3) Objective Vital Signs Vital Signs Date Time Temp Pulse Resp B/P (MAP) Pulse Ox O2 Delivery O2 Flow Rate FiO2 02/10/17 08:00 99.0 16 02/10/17 07:59 100 114/62 (79) 02/10/17 05:00 97.8 02/10/17 04:15 18 02/10/17 04:07 102 111/68 (82) 02/09/17 23:00 98.2 18 02/09/17 22:44 102 97/79 (85) 02/09/17 19:48 97.5 16 02/09/17 19:48 98 109/70 (83) 02/09/17 16:40 104 110/66 (81) 02/09/17 16:00 98.2 02/09/17 16:00 17 02/09/17 15:00 16 02/09/17 14:00 98.0 02/09/17 14:00 17 02/09/17 12:06 17 02/09/17 12:00 104 105/59 (74) 02/09/17 12:00 18 02/09/17 11:00 105 111/72 (85) 02/09/17 10:45 103 116/75 (89) 02/09/17 10:38 97.9 02/09/17 10:31 100 109/85 (93) 02/09/17 10:22 17 02/09/17 10:21 84 111/93 (99) 02/09/17 10:00 98.3 96 20 100/70 (80) 100 Room Air 02/09/17 09:45 98 20 93/62 (72) 99 Room Air 02/09/17 09:30 98 20 92/55 (67) 99 Room Air 02/09/17 09:15 97 20 89/54 (66) 94 Room Air 02/09/17 09:00 99 20 88/54 (65) 97 Room Air Physical Exam GENERAL: Well-nourished, well-developed patient. CARDIOVASCULAR: Regular rate and rhythm without murmurs, gallops, or rubs. RESPIRATORY: Breath sounds equal bilaterally. No accessory muscle use. ABDOMEN/GI: Abdomen soft, non-tender. Fundus: 20 GENITOURINARY: External Genitalia: intact and normal in appearance Presentation: footling breech Membranes: intact Uterine Contractions: none FHT's: 155 EXTREMITIES: No cyanosis or edema, non-tender, without signs of DVT. (Tova Mccauley MD, R3) Assessment and Plan Problem List: (1) Incompetent cervix ICD Codes: N88.3 - Incompetence of cervix uteri Status: Acute (2) Short cervix with cervical cerclage in second trimester, antepartum ICD Codes: O26.872 - Cervical shortening, second trimester; O34.32 - Maternal care for cervical incompetence, second trimester Status: Acute Assessment and Plan 36 y/o A3 at 20/5 weeks gestation admitted for rescue cervical cerclage secondary to incompetent cervix. Procedure performed by Dr. Hobbs under spinal anesthesia on 02/09/17. Currently POD #1. -Start bedrest with bathroom privileges, will DC Sanders today -FHR Qshift -Discontinue Indomethacin 25mg PO q6H and Cleocin 900mg Q8H (these were continued for 24hr postoperatively) -DC IV fluids today -Regular adult diet -SCDs and Lovenox 40units SQ daily for DVT prophylaxis Disposition: Anticipate discharge home tomorrow after 48 hour observation postop dw Dr. Barrera (Tova Mccauley MD, R3) Assessment and Plan Patient seen and evaluated with resident under direct supervision, agree with assessment and plan. (Phoenix Barrera MD) Tova Mccauley MD, R3 Feb 10, 2017 09:02 Phoenix Barrera MD Feb 11, 2017 17:06
--- NOTE | 2017-02-10 09:31 | HHI.DCPOC ---
Discharge Care Plan Diagnosis: (1) Short cervix with cervical cerclage in second trimester, antepartum (2) Incompetent cervix Report Symptoms to Your Doctor -Temperature above 100.5 degrees -Redness, of incision or excessive or foul smelling drainage -Unusual pain or calf pain -Increased vaginal bleeding -Painful or difficulty urinating -Feelings of extreme sadness or anxiety after 2 weeks Goals to Promote Your Health * To prevent worsening of your condition and complications * To maintain your health at the optimal level Directions to Meet Your Goals Take your medications as prescribed Follow your dietary instruction Follow activity as directed Ensure plenty of rest for recovery Drink fluids for hydration Keep your appointments as scheduled Take your immunizations and boosters as scheduled If your symptoms worsen call your PCP, if no PCP go to Urgent Care Center or Emergency Room Smoking is Dangerous to Your Health. Avoid second hand smoke Call the 24-hour crisis hotline for domestic abuse at Tova Mccauley MD, R3 Feb 10, 2017 09:31
[2017-02-10] MEDS: ENOXAPARIN SODIUM 40 MG/0.4 ML SYRINGE SQ SCH (09:41)
[2017-02-10] MEDS: ACETAMINOPHEN 1000 MG/100 ML VIAL IV PRN (10:24)
[2017-02-11] VITALS (9 sets, daily range): BP systolic 117; BP diastolic 71; PULSE 102; RESP 16–18; TEMP 98.8
[2017-02-11] MEDS: ENOXAPARIN SODIUM 40 MG/0.4 ML SYRINGE SQ SCH (08:57)
--- NOTE | 2017-02-11 09:08 | PD.OB.ANTE ---
Subjective Diagnosis: (1) Incompetent cervix Diagnosis: Principal (2) Short cervix with cervical cerclage in second trimester, antepartum Diagnosis: Principal Interval History No acute events overnight. Patient remains afebrile, vitals are stable. She denies any contractions. Denies VB, LOF, or vaginal discharge or irritation. She denies fevers, chills, chest pain, shortness of breath, swelling of either lower extremity. Antepartum ROS: Reports: movement normal, Denies: New complaints, Loss of fluid, Vaginal bleeding, Contractions ( Mono Acevedo MD R2) Antepartum ROS: Denies: New complaints, Loss of fluid, Vaginal bleeding, Contractions (Ping Haley MD) Objective Vital Signs Vital Signs Date Time Temp Pulse Resp B/P (MAP) Pulse Ox O2 Delivery O2 Flow Rate FiO2 02/11/17 07:44 16 02/11/17 07:44 98.8 102 117/71 (86) 02/11/17 06:20 18 02/11/17 06:00 18 02/11/17 05:00 18 02/11/17 03:44 18 02/11/17 03:00 18 02/11/17 02:00 18 02/11/17 01:00 18 02/11/17 00:00 18 02/10/17 23:00 18 02/10/17 22:00 18 02/10/17 19:56 96 128/72 (90) 02/10/17 19:06 18 02/10/17 16:06 106 115/50 (71) 02/10/17 16:05 99.2 18 02/10/17 12:31 102 18 115/58 (77) Physical Exam GENERAL: Well-nourished, well-developed patient. CARDIOVASCULAR: Regular rate and rhythm without murmurs, gallops, or rubs. RESPIRATORY: Breath sounds equal bilaterally. No accessory muscle use. ABDOMEN/GI: Abdomen soft, non-tender. Gravid to about 20 weeks gestation. FHT's: 150s, 10-minute strip reviewed this AM Uterine contractions: None on tocometer EXTREMITIES: No cyanosis or edema, non-tender, without signs of DVT. (Mono Acevedo MD R2) Physical Exam Abd: soft NT SVE: cerclage intact. No vaginal bleeding. Normal leukorrhea. NT cervix. (Ping Haley MD) Assessment and Plan Problem List: (1) Incompetent cervix ICD Codes: N88.3 - Incompetence of cervix uteri Status: Acute (2) Short cervix with cervical cerclage in second trimester, antepartum ICD Codes: O26.872 - Cervical shortening, second trimester; O34.32 - Maternal care for cervical incompetence, second trimester Status: Acute Assessment and Plan 36 y/o A3 at 20/6 weeks gestation admitted for rescue cervical cerclage secondary to incompetent cervix. Procedure performed by Dr. Hobbs under spinal anesthesia on 02/09/17. Currently POD #2. -FHR Qshift -Discontinue Indomethacin 25mg PO q6H and Cleocin 900mg Q8H (these were continued for 24hr postoperatively) -IV fluids discontinued -Regular adult diet -SCDs and Lovenox 40units SQ daily for DVT prophylaxis Disposition: Anticipate discharge today after 48 hours of observation postop (Mono Acevedo MD R2) Assessment and Plan 20w6d Emergency cerclage Painless dilation @ 20 weeks Now 48 hours post cerclage and 24 hours off tocolytics and antibiotics D/c home on rest precautions reviewed f/u with OB this week (Ping Haley MD) Mono Acevedo MD R2 Feb 11, 2017 09:08 Ping Haley MD Feb 11, 2017 09:47
--- NOTE | 2017-02-12 07:47 | MP ---
cc: MARION HOBBS M.D. DATE OF SURGERY 02/09/2017 PREOPERATIVE DIAGNOSIS Intrauterine at 19+ weeks gestation with an incompetent cervix. POSTOPERATIVE DIAGNOSIS Intrauterine at 19+ weeks gestation with an incompetent cervix. PROCEDURE Chavez cerclage. PRECONSTRUCTION MANAGER Dr. Marion Hobbs ANESTHESIA Spinal. Dr. Clark. FINDINGS IN SURGERY A cervix dilated about 4 cm with about 1.5 to 2 cm residual cervix to operate with. Easily visualize amniotic sac with parts moving. BLOOD LOSS Minimal. COMPLICATIONS None. PROCEDURE IN DETAIL After proper consents were obtained, the patient was taken to the operating room where a spinal anesthetic was placed. She was then placed in the dorsal lithotomy position, then Trendelenburg position. She had a very gentle preparation with iodine of the vaginal vault by myself. Inspection with the speculum revealed that the cervix is about 4 cm dilated by visualization. She has about 1.5 to 2 cm of residual cervix. She has a very clearly visualized amniotic sac with parts moving in it. I went ahead and grasped the anterior lip of the cervix with an Allis and then placed a Mersilene suture from 12 o'clock to 9 o'clock, from 9 o'clock to 6 o'clock, 6 o'clock to 3 o'clock, 3 o'clock to 12 o'clock. I was able to do that without injuring the amniotic sac. I went ahead and closed that, placing several ties in the [place] band. Good closure of the cervix was noted. No bleeding was noted. Instruments were removed, counts were correct and the patient was stable to the recovery room. MD ALVARO Khan/VINCENT /9:14 AM /7:37 AM
[2017-03-21] MEDS ORDERED: FERR325T8 PO (11:24)
--- NOTE | 2017-03-21 18:06 | HHI.DS ---
Admission Date Feb 07, 2017 at 11:56 Discharge Date: Feb 11, 2017 Admitting Diagnosis Incompetent cervix Diagnosis: (1) Short cervix with cervical cerclage in second trimester, antepartum ICD Codes: O26.872 - Cervical shortening, second trimester; O34.32 - Maternal care for cervical incompetence, second trimester Status: Acute (2) Incompetent cervix ICD Codes: N88.3 - Incompetence of cervix uteri Status: Acute Brief History Pt is a 36 y/o A3 at 20/2 weeks gestation that was transferred to the [facility] ED from OB diagnostics for possible cervical cerclage. The pt was last seen by her OB provider, Dr. Moran, at the [facility] on 01/19/17 who determined that her cervix was dilated to 1-2 cm. On further questioning and EMR review, it was discovered that the pt had a uterine inversion in 2007 after a spontaneous vaginal delivery. She had to be moved to the OR for inversion. During the procedure, the cervix was stabilized with ring forceps and was sutured for tearing that occurred. The patient presented for her OB diagnostics appointment with MFM specialist, Dr. Sanon, where feet were found in the endocervical canal surrounded by membrane on ultrasound. Dr. Sanon contacted the pt's OB provider with strong recommendation for a cervical cerclage. Hospital Course Patient was admitted for rescue cervical cerclage secondary to an incompetent cervix. Procedure was performed by Dr. Hobbs under spinal anesthesia on 2016. Patient was kept in hospital for observation for 48 hours following the procedure. She had no acute issues. She had no loss of fluid, vaginal bleeding, or contractions during this admission stay. She was discharge home in stable condition after having no complications for 48 hours postoperatively. Pt Condition on Discharge: Stable Discharge Disposition: Discharge Home Discharge Instructions Diet Instructions: Diet Activities You Can Perform: Sexual Activity Additional Activity Instruc.: Caution with sexual activity Follow up Referrals: KENO CLERK - 1 Week with Penelope Moran MD R2 Continued Medications: Vit W/ Ferrous Fumara (Pnv-Select 27-0.6-0.4 mg) 1 Tab Tab 1 TAB PO DAILY, #30 BOTTLE 11 Refills Mono Acevedo MD R2 Mar 21, 2017 18:06
[2017-03-27] MEDS ORDERED: TETA1INJ6 IM (09:13)
== END 2017-02-11 10:28 | disposition home or self-care (01) ==
LOC: HPND 09:13 → H2EA 11:56
PROVIDERS: ADMIT Obstetrics & Gynecology; ATTEND Obstetrics & Gynecology
DX: O34.32 Maternal care for cervical incompetence, second trimester (principal); O26.872 Cervical shortening, second trimester; O99.342 Other mental disorders complicating pregnancy, second trimester; F41.9 Anxiety disorder, unspecified; Z3A.20 20 weeks gestation of pregnancy; Z59.9 Problem related to housing and economic circumstances, unspecified
CPT/HCPCS: 00948; 59320; 76811; 76815; 76817; 80048; 81001; 85025; 86850; 86900; 86901; J0131; J1650; J2370; J3010; J7120; 99285; G0378

== ENCOUNTER 2017-02-20 08:36 | Observation (INO) | payer MEDICAID ==
[~2017-02-20] VITALS: Ht 162.6 cm; Wt 92.0 kg
[2017-02-20] VITALS (9 sets, daily range): BP systolic 100–134; BP diastolic 62–82; PULSE 96–99; RESP 16–22; TEMP 98.1–99; O2SAT 98
--- NOTE | 2017-02-20 09:02 | PD ---
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 Crowell last week, presents to the ER today for pelvic pressure and spotting this morning, denies any fevers or any other issues. Modifying Factors: None Associated Signs & Symptoms: Pelvic pressure, spotting Risk Factors: Cerclage, 21 weeks PFSH Past Medical History Hx Anticoagulant Therapy: No Cardiovascular Problems: No Chemotherapy: No Cerebrovascular Accident: No Diabetes: No Diminished Hearing: No Endocrine: No Gastrointestinal Disorders: No Genitourinary: No Headaches: Yes Immune Disorder: No Reproductive: Yes (FIBROIDS, OVARIAN CYSTS) Respiratory: No ?: : 4 Para: 2 Miscarriage: 1 : 1 Past Surgical History Hysterectomy: No Pacemaker: No Other Surgery: No Social History Alcohol Use: No Tobacco Use: No Substance Use: No Allergies-Medications (Allergen,Severity, Reaction): Coded Allergies: metoclopramide (Unverified Allergy, Severe, SWELLING, 02/16/17) ondansetron (Unverified Allergy, Severe, Swelling, 02/16/17) swelling of the tongue Reported Meds & Prescriptions Reported Meds & Active Scripts Active Pnv-Select 27-0.6-0.4 mg ( Vit W/ Ferrous Fumara) 1 Tab Tab 1 Tab PO DAILY Review of Systems Except as stated in HPI: all other systems reviewed are Neg Physical Exam Narrative GENERAL: Well-developed young -[place] female patient currently mild distress. Awake and oriented 3. SKIN: Focused skin assessment warm/dry. HEAD: Atraumatic. Normocephalic. EYES: Pupils equal and round. No scleral icterus. No injection or drainage. ENT: No nasal bleeding or discharge. Mucous membranes pink and moist. NECK: Trachea midline. No JVD. CARDIOVASCULAR: Regular rate and rhythm. No murmur appreciated. RESPIRATORY: No accessory muscle use. Clear to auscultation. Breath sounds equal bilaterally. GASTROINTESTINAL: Abdomen gravid, mild lower abdominal discomfort on light palpation, nondistended. Hepatic and splenic margins not palpable. MUSCULOSKELETAL: No obvious deformities. No clubbing. No cyanosis. No edema. NEUROLOGICAL: Awake and alert. No obvious cranial nerve deficits. Motor grossly within normal limits. Normal speech. PSYCHIATRIC: Appropriate mood and affect; insight and judgment normal. 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 Abdomen is otherwise fairly benign. Considering symptoms, case was discussed with OB ER physician who recommends that the patient goes directly up to the OB ER for further evaluation. Patient is placed in bed rest with mild Trendelenburg position. Pelvic exam is deferred by me due to history. Diagnosis Primary Impression: Short cervix with cervical cerclage in second trimester, antepartum Additional Impression: Vaginal bleeding before 22 weeks gestation Disposition: 70 TRANSFER TO OTHER FACILITY (OB ER) Condition: Stable Sathya Ash MD Feb 20, 2017 09:02
[2017-02-20] MEDS ORDERED: ZOLPIDEM TARTRATE 5 MG TAB PO PRN (09:30)
[2017-02-20] MEDS ORDERED: ACETAMINOPHEN 325 MG TAB PO PRN (09:30)
--- NOTE | 2017-02-20 09:38 | HHI.HP ---
History & Physical H&P Reena barrios Unit Number: [id number] Date of : 1980 Patient Status: Discharged Inpatient (obs) Attending Doctor: Fatimah Olmedo MD HPI HPI Chief Complaint Incompetent cervix Date Seen: Feb 07, 2017 Travel History International Travel<30 Days: No Contact w/Intl Traveler<30Days: No Known Affected Area: No History of Present Illness HPI Pt is a 36 y/o BF A3 at 21/2 weeks gestation that was transferred from main ER for evaluation of pelvic pressure and pain and spotting a week after Chavez cerclage placement by Dr. Clark. . , Cerclage doctors [place] note the patient was 4 cm dilated with parts visible in the amniotic sac in the cervix however was able to put a Mersilene cerclage and with good resultant closure of the cervix. EMR review, it was discovered that the pt had a uterine inversion in 2007 after a spontaneous vaginal delivery. She had to be moved to the OR for inversion. During the procedure, the cervix was stabilized with ring forceps and was sutured for tearing that occurred. The patient presented for her OB diagnostics appointment with MFM specialist, Dr. Sanon, where feet were found in the endocervical canal surrounded by membrane on ultrasound. History (Limited) History Past Medical History Medical History: Denies Significant Hx Obstetric History Obstetric History 2 fullterm 2 abortions 1 miscarriage Past Surgical History Narrative Surgical Surgical uterine inversion after spontaneous vaginal delivery of second child Family History Narrative Family History No family history of a bleeding disorder Maternal grandfather had diabetes Social History Alcohol Use: No Tobacco Use: No Substance Abuse: No Allergies-Medications Allergies-Medications (Allergen,Severity, Reaction): Coded Allergies: metoclopramide (Unverified Allergy, Severe, SWELLING, 01/30/17) ondansetron (Unverified Allergy, Severe, Swelling, 01/30/17) swelling of the tongue Home Meds Active Scripts Vit W/ Ferrous Fumara (Pnv-Select 27-0.6-0.4 mg) 1 Tab Tab, 1 TAB PO DAILY, #30 BOTTLE 11 Refills Prov:HimanshuoPenelope MD R2 01/22/17 ROS Review of Systems Except as stated in HPI: all other systems reviewed are Neg General / Constitutional: No: Fever, Chills Eyes: No: Blurred Vision, Visual changes HENT: No: Headaches Cardiovascular: No: Chest Pain or Discomfort Respiratory: No: Short of Breath Gastrointestinal: No: Nausea, Vomiting, Abdominal Pain Genitourinary: Pelvic Pain (occasional suprapubic pain ), No: Dysuria, Discharge, Vaginal Bleeding Physical Exam Physical Exam Vital Signs Date Time Temp Pulse Resp B/P (MAP) Pulse Ox O2 Delivery O2 Flow Rate FiO2 02/07/17 13:05 96 103/83 (90) 02/07/17 13:00 98.5 20 Narrative GENERAL: Well-nourished, well-developed patient. SKIN: Warm and dry. HEAD: Normocephalic and atraumatic. EYES: No scleral icterus. No injection or drainage. ENT: No nasal drainage noted. Mucous membranes pink. Airway patent. NECK: Supple, trachea midline. No JVD. CARDIOVASCULAR: Regular rate and rhythm without murmurs, gallops, or rubs. RESPIRATORY: Breath sounds equal bilaterally. No accessory muscle use. ABDOMEN/GI: Abdomen soft, non-tender, bowel sounds present, no rebound, no guarding Gravid to 20 weeks size GENITOURINARY: FHT's: 140's speculum exam done the cerclage is intact. Cervix is closed there is no sign of prolapsing amniotic sac or parts EXTREMITIES: No cyanosis or edema. BACK: Nontender without obvious deformity. No CVA tenderness. NEUROLOGICAL: Awake and alert. Motor and sensory grossly within normal limits. Five out of 5 muscle strength in all muscle groups. Normal speech. Caprini VTE Risk Assessment Caprini VTE Risk Assessment Caprini VTE Risk Assessment: Mod/High Risk (score >= 2) Caprini Risk Assessment Model Point Value = 1 Point Value = 2 Point Value = 3 Point Value = 5 Age 41-60 Minor surgery BMI > 25 kg/m2 Swollen legs Varicose veins or History of unexplained or recurrent spontaneous Oral contraceptives or hormone replacement Sepsis (< 1 month) Serious lung disease, including pneumonia (< 1 month) Abnormal pulmonary function Acute myocardial infarction Congestive heart failure (< 1 month) History of inflammatory bowel disease Medical patient at bed rest Age 61-74 Arthroscopic surgery Major open surgery (> 45 min) Laparoscopic surgery (> 45 min) Malignancy Confined to bed (> 72 hours) Immobilizing plaster cast Central venous access Age >= 75 History of VTE Family history of VTE Factor V Leiden Prothrombin [id number] Lupus anticoagulant Anticardiolipin antibodies Elevated serum homocysteine Heparin-induced thrombocytopenia Other congenital or acquired thrombophilia Stroke (< 1 month) Elective arthroplasty Hip, pelvis, or leg fracture Acute spinal cord injury (< 1 month) Prophylaxis Regimen Total Risk Factor Score Risk Level Prophylaxis Regimen 0-1 Low Early ambulation 2 Moderate Order ONE of the following: *Sequential Compression Device (SCD) *Heparin 5000 units SQ BID 3-4 Higher Order ONE of the following medications: *Heparin 5000 units SQ TID *Enoxaparin/Lovenox 40 mg SQ daily (WT < 150 kg, CrCl > 30 mL/min) *Enoxaparin/Lovenox 30 mg SQ daily (WT < 150 kg, CrCl > 10-29 mL/min) *Enoxaparin/Lovenox 30 mg SQ BID (WT < 150 kg, CrCl > 30 mL/min) AND/OR *Sequential Compression Device (SCD) 5 or more Highest Order ONE of the following medications: *Heparin 5000 units SQ TID (Preferred with Epidurals) *Enoxaparin/Lovenox 40 mg SQ daily (WT < 150 kg, CrCl > 30 mL/min) *Enoxaparin/Lovenox 30 mg SQ daily (WT < 150 kg, CrCl > 10-29 mL/min) *Enoxaparin/Lovenox 30 mg SQ BID (WT < 150 kg, CrCl > 30 mL/min) AND *Sequential Compression Device (SCD) Data Data Data Vital Signs Reviewed: Yes Orders Orders Us Ob Complete/Level Ii W/Tv (02/07/17 ) Code Status (02/07/17 12:52) Vital Signs (Adult) .Per protocol (02/07/17 12:52) Complete Blood Count With Diff (02/07/17 12:52) Urinalysis - C+S If Indicated (02/07/17 12:52) Type And Screen (02/07/17 12:52) Specimen To Be Collected PRN (02/07/17 12:52) Prothrombin Time / Inr (Pt) (02/07/17 12:52) Basic Metabolic Panel (Bmp) (02/07/17 12:52) ^ Other Nursing Orders (02/07/17 12:52) Indomethacin (Indocin) (02/07/17 13:00) Lactated Ringer's 1000 Ml Inj (Lr 1000 M (02/07/17 13:00) Place In Observation (02/07/17 ) Activity Bed Rest (02/07/17 13:01) Diet Regular Basic (02/07/17 Lunch) Us Ob Limited (02/08/17 06:00) Clindamycin Inj (Cleocin Inj) (02/07/17 13:15) Npo After Midnight W/ Po Meds (02/07/17 Lunch) Urinary Catheter Management CORA.Q8H (02/07/17 13:14) Labs Laboratory Tests Test 02/07/17 12:30 02/07/17 12:57 White Blood Count 10.0 Red Blood Count 3.52 Hemoglobin 10.1 Hematocrit 31.2 Mean Corpuscular Volume 88.8 Mean Corpuscular Hemoglobin 28.7 Mean Corpuscular Hemoglobin Concent 32.3 Red Cell Distribution Width 15.2 Platelet Count 271 Mean Platelet Volume 8.2 Neutrophils (%) (Auto) 67.0 Lymphocytes (%) (Auto) 24.0 Monocytes (%) (Auto) 6.8 Eosinophils (%) (Auto) 2.0 Basophils (%) (Auto) 0.2 Neutrophils # (Auto) 6.7 Lymphocytes # (Auto) 2.4 Monocytes # (Auto) 0.7 Eosinophils # (Auto) 0.2 Basophils # (Auto) 0.0 CBC Comment DIFF FINAL Differential Comment OB Assessment/Plan Assessment/Plan Assessment and Plan 36 y/o A3 at 21/2 who presents 1 week after Chavez cerclage placement complaining of pelvic pressure spotting and discomfort, she is evaluated in my emergency room and sent OB ED for further evaluation. Here heart tones were positive, speculum exam shows an intact cervix and cervical cerclage with no bleeding no overt infection on the cervix is closed to palpation, patient states she's been at bedrest at home but she was not here so we don't know how much bedrest she really was doing at home, but admit to inpatient management with Trendelenburg placement. The OB diagnostics to do evaluation and vaginal ultrasound cervix for cervical length today. Patient was scheduled for this ultrasound tomorrow she is well known to the OB diagnostics / team, they will help direct Further management. Plan -Admit on observation -Bed rest on trendelenburg position -No bimanual or speculum cervical exams -LR at 125 ml/hr -Type and screen -CBC, BMP, UA with reflex culture -Regular adult diet -Repeat ultrasound -SCDs for DVT prophylaxis Discharge Planning Dion Galvez MD Feb 20, 2017 Dion Galvez II, MD Feb 20, 2017 09:38
[2017-02-20 11:01] LABS: AUTOMATED NEUTROPHIL # 8.2 TH/MM3 (1.8-7.7); BASOPHIL % 0.3 % (0.0-2.0); EOSINOPHIL # 0.2 TH/MM3 (0-0.4); EOSINOPHIL % 1.7 % (0.0-4.0); HEMATOCRIT 31.3 % (35.0-46.0); HEMO FLAGS DIFF FINAL; LYMPH % 20.2 % (9.0-44.0); LYMPHOCYTE # 2.3 TH/MM3 (1.0-4.8); MEAN CORPUSCULAR HEMOGLOBIN 28.9 PG (27.0-34.0); MEAN CORPUSCULAR HGB CONC 32.5 % (32.0-36.0); MONO % 6.5 % (0.0-8.0); NEUT % 71.3 % (16.0-70.0); PLATELET COUNT 295 TH/MM3 (150-450); RED BLOOD COUNT 3.52 MIL/MM3 (4.00-5.30); RED CELL DISTRIBUTION WIDTH 14.7 % (11.6-17.2); WHITE BLOOD COUNT 11.5 TH/MM3 (4.0-11.0)
[2017-02-20 11:10] LABS: BLOOD, URINE NEG (NEG); COMMENT (UR) CATH-CULT NOT IND; CULTURE IF INDICATED CATH CULTURE NOT IND; GLUCOSE,URINE NEG (NEG); KETONE, URINE NEG (NEG); MUCUS URINE FEW /lpf (OCC); NITRITE,URINE NEG (NEG); SQUAMOUS EPITHELIAL CELL URINE <1 /hpf (0-5); URINE COLOR YELLOW (YELLW/STRAW)
[2017-02-20] MEDS: SODIUM CHLORIDE 0.9% FLUSH 10 ML FLUSH IV FLUSH SCH (11:22)
[2017-02-20] MEDS: cefTRIAXone INJ 1,000 MG in SODIUM CHLORIDE 0.9% INJ 100 ML IV SCH (11:32)
[2017-02-20] MEDS: SODIUM CHLORIDE 0.9% FLUSH 10 ML FLUSH IV FLUSH PRN ×2 (11:33→12:08)
[2017-02-21 01:30] VITALS: RESP 18
[2017-02-21 03:30] VITALS: RESP 18
[2017-02-21 05:30] VITALS: RESP 16
[2017-02-21 08:10] VITALS: RESP 20; TEMP 98.9
[2017-02-21 08:11] VITALS: BP 99/67; PULSE 93
[2017-02-21] MEDS: SODIUM CHLORIDE 0.9% FLUSH 10 ML FLUSH IV FLUSH SCH (09:00)
--- NOTE | 2017-02-21 09:23 | PD.OB.ANTE ---
Subjective Interval History Patient seen and examined this morning by medical team. No acute events overnight with vital signs stable. Patient's only complaint this morning is that she is hungry and requests order breakfast. She endorses good movement without vaginal discharge or bleeding. She denies any right upper quadrant pain, dizziness, or contractions. Patient reports that she did have a mild headache overnight that resolved with sleep. Otherwise she has no complaints and denies any fevers, chills, shortness of breath, chest pain, NVD, abdominal pain, or calf tenderness. Antepartum ROS: Reports: movement normal, Denies: New complaints, Loss of fluid, Vaginal bleeding, Contractions Objective Vital Signs Vital Signs Date Time Temp Pulse Resp B/P (MAP) Pulse Ox O2 Delivery O2 Flow Rate FiO2 02/21/17 08:11 93 99/67 (78) 02/21/17 08:10 98.9 20 02/21/17 05:30 16 02/21/17 03:30 18 02/21/17 01:30 18 02/20/17 22:59 18 02/20/17 22:58 98.9 02/20/17 22:57 98 102/62 (75) 02/20/17 19:57 99 100/68 (79) 02/20/17 19:57 99.0 18 02/20/17 12:45 20 02/20/17 12:00 98.1 02/20/17 11:50 22 02/20/17 11:47 96 123/82 (96) Lab & Micro Results Test 02/20/17 10:13 02/20/17 10:15 White Blood Count 11.5 TH/MM3 Red Blood Count 3.52 MIL/MM3 Hemoglobin 10.2 GM/DL Hematocrit 31.3 % Mean Corpuscular Volume 89.0 FL Mean Corpuscular Hemoglobin 28.9 PG Mean Corpuscular Hemoglobin Concent 32.5 % Red Cell Distribution Width 14.7 % Platelet Count 295 TH/MM3 Mean Platelet Volume 8.5 FL Neutrophils (%) (Auto) 71.3 % Lymphocytes (%) (Auto) 20.2 % Monocytes (%) (Auto) 6.5 % Eosinophils (%) (Auto) 1.7 % Basophils (%) (Auto) 0.3 % Neutrophils # (Auto) 8.2 TH/MM3 Lymphocytes # (Auto) 2.3 TH/MM3 Monocytes # (Auto) 0.8 TH/MM3 Eosinophils # (Auto) 0.2 TH/MM3 Basophils # (Auto) 0.0 TH/MM3 CBC Comment DIFF FINAL Differential Comment Urine Color YELLOW Urine Turbidity CLEAR Urine pH 7.0 Urine Specific [place] 1.018 Urine Protein NEG mg/dL Urine Glucose (UA) NEG mg/dL Urine Ketones NEG mg/dL Urine Occult Blood NEG Urine Nitrite NEG Urine Bilirubin NEG Urine Urobilinogen LESS THAN 2.0 MG/DL Urine Leukocyte Esterase NEG Urine RBC LESS THAN 1 /hpf Urine WBC LESS THAN 1 /hpf Urine Squamous Epithelial Cells <1 /hpf Urine Mucus FEW /lpf Microscopic Urinalysis Comment CATH-CULT NOT IND Physical Exam GENERAL: Well-nourished, well-developed patient. HEENT: Atraumatic, normocephalic with EOMI. No JVD or LAD appreciated. CARDIOVASCULAR: Regular rate and rhythm without murmurs, gallops, or rubs. RESPIRATORY: Breath sounds equal bilaterally. No accessory muscle use. ABDOMEN/GI: Abdomen soft, non-tender. Fundus: Consistent with 22 weeks gestation EXTREMITIES: No cyanosis or edema, non-tender, without signs of DVT. Neuro: Afocal. AAO 3. Normal speech and judgment. Normal interaction with medical staff. Assessment and Plan Problem List: (1) Short cervix with cervical cerclage in second trimester, antepartum ICD Codes: O26.872 - Cervical shortening, second trimester; O34.32 - Maternal care for cervical incompetence, second trimester Status: Acute Assessment and Plan 36 y/o A3 at 09/08 who presents 1 week after Chavez cerclage placement complaining of pelvic pressure, spotting, and discomfort, She was evaluated in the emergency room and sent OB ED for further evaluation. heart tones were positive, speculum exam shows an intact cervix and cervical cerclage with no bleeding no overt infection on the cervix is closed to palpation. Patient states she's been at bedrest at home but she was not here so we don't know how much bedrest she really was doing at home. Admit to inpatient management with Trendelenburg placement. The OB diagnostics to do evaluation and vaginal ultrasound cervix for cervical length. Plan -Admit on observation -Bed rest on trendelenburg position -No bimanual or speculum cervical exams -LR at 125 ml/hr -Type and screen -CBC: WBC 11.5, H/H 10.2/31.3, platelets 295 -UA: Negative -Regular adult diet -Consult placed to maternal medicine,plan for diagnostic ultrasound and evaluation today, 02/21 -SCDs for DVT prophylaxis DW: Dr. Jauregui WDW: Dr. Moran, PCP Troy Valente MD R2 Feb 21, 2017 09:23
[2017-02-21] MEDS: cefTRIAXone INJ 1,000 MG in SODIUM CHLORIDE 0.9% INJ 100 ML IV SCH (11:00)
--- NOTE | 2017-02-21 12:31 | HHI.DCPOC ---
Discharge Care Plan Diagnosis: (1) Short cervix with cervical cerclage in second trimester, antepartum Report Symptoms to Your Doctor -Temperature above 100.5 degrees -Redness, of incision or excessive or foul smelling drainage -Unusual pain or calf pain -Increased vaginal bleeding -Painful or difficulty urinating -Feelings of extreme sadness or anxiety after 2 weeks Goals to Promote Your Health * To prevent worsening of your condition and complications * To maintain your health at the optimal level Directions to Meet Your Goals Take your medications as prescribed Follow your dietary instruction Follow activity as directed Ensure plenty of rest for recovery Drink fluids for hydration Keep your appointments as scheduled Take your immunizations and boosters as scheduled If your symptoms worsen call your PCP, if no PCP go to Urgent Care Center or Emergency Room Smoking is Dangerous to Your Health. Avoid second hand smoke Call the 24-hour crisis hotline for domestic abuse at Troy Valente MD R2 Feb 21, 2017 12:31
[2017-03-21] MEDS ORDERED: FERR325T8 PO (11:24)
[2017-03-27] MEDS ORDERED: TETA1INJ6 IM (09:13)
== END 2017-02-21 13:27 | disposition home or self-care (01) ==
LOC: HOBED 08:36 → H2EA 09:53
PROVIDERS: ADMIT Obstetrics & Gynecology Maternal & Fetal Medicine; ATTEND Obstetrics & Gynecology Maternal & Fetal Medicine
DX: O34.32 Maternal care for cervical incompetence, second trimester (principal); O26.872 Cervical shortening, second trimester; O99.342 Other mental disorders complicating pregnancy, second trimester; F41.9 Anxiety disorder, unspecified; Z3A.22 22 weeks gestation of pregnancy
CPT/HCPCS: 76815; 76817; 81001; 85025; 96365; 99285; G0378; J0696

== ENCOUNTER → 2017-02-28 | Outpatient (CLI) | payer MEDICAID ==
[~2017-02-28] MED LIST changes: +FERR325T8 PO; +TETA1INJ6 IM
== END ==
LOC: HPND 07:40
PROVIDERS: ATTEND Family Medicine
DX: O34.32 Maternal care for cervical incompetence, second trimester (principal)
CPT/HCPCS: 76815; 76817

== ENCOUNTER → 2017-03-07 | Outpatient (CLI) | payer MEDICAID | LOC: HPND 08:23 | PROVIDERS: ATTEND Family Medicine | DX: O34.32 Maternal care for cervical incompetence, second trimester (principal) | CPT/HCPCS: 76816; 76817 ==

== ENCOUNTER → 2017-03-21 | Outpatient (CLI) | payer MEDICAID | LOC: HPND 08:13 | PROVIDERS: ATTEND Family Medicine | DX: O34.32 Maternal care for cervical incompetence, second trimester (principal) | CPT/HCPCS: 76815; 76817 ==

== ENCOUNTER 2017-04-22 22:11 | Emergency (ER) | payer MEDICAID ==
[~2017-04-22 22:11] MED LIST changes: +FERR325T18 PO; -FERR325T8 PO; -TETA1INJ6 IM
--- NOTE | 2017-04-22 22:52 | PD ---
HPI Chief Complaint ABD pain Date Seen: Apr 22, 2017 Time Seen: 22:38 Travel History International Travel<30 Days: No Contact w/Intl Traveler<30Days: No History of Present Illness HPI Mrs. Llanes is a 36 year old at 30/6 weeks gestation based on LMP and second trimester ultrasound who presents with ABD pain. is complicated by cervical incompetence with funneling who is s/p cerclage and is on bedrest. She was evaluated by her PCP, Dr. Moran, on Sunday, 04/20, for a routine visit. At that appointment her main complaints was sharp, groin pain consistent with round ligament pain. She was prescribed Tylenol to be used as directed for her pain along with heating pads and warm baths to assist with pain control. Since her clinic visit she has had continued BL groin pain up to 10/10 that is non-radiating. The pain is positional and is alleviated by rolling from side to side. She has only been using Tylenol 500mg twice a day for pain control. She endorses good movement and denies any vaginal bleeding, discharge, or dysuria. Otherwise she has no complaints and denies a complete ROS. Para: 2 : 6 History Past Medical History Medical History: Denies Significant Hx Obstetric History Obstetric History 2 fullterm 2 abortions 1 miscarriage Past Surgical History Narrative Surgical Surgical uterine inversion after spontaneous vaginal delivery of second child Family History Narrative Family History No family history of a bleeding disorder Maternal grandfather had diabetes Social History Alcohol Use: No Tobacco Use: No Substance Abuse: No Allergies-Medications (Allergen,Severity, Reaction): Coded Allergies: metoclopramide (Unverified Allergy, Severe, SWELLING, 04/20/17) ondansetron (Unverified Allergy, Severe, Swelling, 04/20/17) swelling of the tongue Home Meds Active Scripts Ferrous Sulfate (Ferrous Sulfate) 325 Mg (65 Mg Iron) Tablet, 325 MG PO TIDPC for Nutritional Supplement, #90 TAB 3 Refills Prov:Tova Mccauley MD, R3 03/21/17 Vit W/ Ferrous Fumara (Pnv-Select 27-0.6-0.4 mg) 1 Tab Tab, 1 TAB PO DAILY, #30 BOTTLE 11 Refills Prov:Penelope Moran MD R2 01/22/17 Review of Systems Except as stated in HPI: all other systems reviewed are Neg Physical Exam Narrative GENERAL: Well-nourished, well-developed patient. SKIN: Warm and dry. HEAD: Normocephalic and atraumatic. EYES: No scleral icterus. No injection or drainage. ENT: No nasal drainage noted. Mucous membranes pink. Airway patent. NECK: Supple, trachea midline. No JVD. CARDIOVASCULAR: Regular rate and rhythm without murmurs, gallops, or rubs. RESPIRATORY: Breath sounds equal bilaterally. No accessory muscle use. ABDOMEN/GI: Abdomen soft, non-tender, bowel sounds present, no rebound, no guarding Gravid to 30 GENITOURINARY: External Genitalia: intact and normal in appearance Cervix: Closed with cerclage intact Station: -3 Membranes: Intact Uterine Contractions: None FHT's: Category: 1 Baseline: 140s Reactive: Positive Variability: Moderate Decels: None EXTREMITIES: No cyanosis or edema. BACK: Nontender without obvious deformity. No CVA tenderness. NEUROLOGICAL: Awake and alert. Motor and sensory grossly within normal limits. Five out of 5 muscle strength in all muscle groups. Normal speech. Data Data Vital Signs Reviewed: Yes [facility] Medical Record Reviewed: Yes Plan Mrs. Llanes is a 36 year old at 30/6 weeks gestation based on LMP and second trimester ultrasound who presents with ABD pain consistent with round ligament pain. is complicated by cervical incompetence with funneling who is s/p cerclage and is on bedrest. 1. IUP at 30 weeks gestation -Continue routine antepartum care -Encouraged PO hydration -Encouraged vitamin -UA sent for evaluation with culture, Dr. Moran sent message to follow culture results as outpatient -FHT: Category 1 tracing, reassuring 2. Round Ligament Pain -Patient educated on round ligament pain with all questions answered -Patient to continue with Tylenol as prescribed when needed for pain control -Encouraged heating pad use as needed 3. with cerclage secondary to incompetent cervix -Continue bedrest -Cerclage sutures intact on sterile speculum exam without bulging membranes -Continue with routine US surveillance Discharge: Patient to be discharged home with routine follow up with her PCP, Dr. Moran. Diagnosis Diagnosis: Primary Impression: 30 weeks gestation of Additional Impression: Abdominal pain during Disposition: DISCHARGE HOME Condition: Stable Troy Valente MD R2 Apr 22, 2017 22:52
[2017-04-23 00:08] LABS: BLOOD, URINE NEG (NEG); COMMENT (UR) CULT NOT INDICATED; CULTURE IF INDICATED CULT NOT INDICATED; GLUCOSE,URINE NEG (NEG); KETONE, URINE NEG (NEG); MUCUS URINE FEW /lpf (OCC); NITRITE,URINE NEG (NEG); PH, URINE 6.5 (5.0-8.5); SQUAMOUS EPITHELIAL CELL URINE 1 /hpf (0-5); URINE COLOR YELLOW (YELLW/STRAW)
[2017-04-26] MEDS ORDERED: ACCUMIS25 (18:53)
[2017-04-26] MEDS ORDERED: ACCUTES19 (18:53)
[2017-04-26] MEDS ORDERED: BLOO1KIT65 (18:53)
== END 2017-04-22 23:45 | disposition home or self-care (01) ==
LOC: HOBED 22:11
DX: O26.892 Other specified pregnancy related conditions, second trimester (principal); R10.9 Unspecified abdominal pain; O34.33 Maternal care for cervical incompetence, third trimester; Z3A.30 30 weeks gestation of pregnancy; Z79.899 Other long term (current) drug therapy
CPT/HCPCS: 81001; 87086; 99283

== ENCOUNTER 2017-05-07 08:38 | Inpatient (IN) | payer MEDICAID ==
[~2017-05-07] VITALS: Ht 160 cm; Wt 99.0 kg
[2017-05-07] VITALS (37 sets, daily range): BP systolic 78–120; BP diastolic 30–78; PULSE 93–134; RESP 16–18; TEMP 98–99.4; O2SAT 96–100
[~2017-05-07 08:38] MED LIST changes: +ACCUMIS25; +ACCUTES19; +BLOO1KIT65
[2017-05-07] MEDS: LACTATED RINGER'S 1000 ML INJ 1,000 ML IV SCH ×2 (09:38→16:58)
[2017-05-07] MEDS ORDERED: LACTATED RINGER'S 1000 ML INJ 500 ML IV ONE (09:38)
[2017-05-07] MEDS ORDERED: MAGNESIUM SULFATE 40 GM PREMIX 1,000 ML IV SCH (09:42)
--- NOTE | 2017-05-07 09:43 | HHI.PR ---
Subjective Remarks [address] [facility] [place] [address] [address] [facility], [place] [address] OPERATIVE REPORT Pt Name: MAGGIE JOHN#: [id number]: [id number] By:Fatimah Olmedo, [facility] #:[id number] By: Signed Signed reports reside in the EMR cc: MARION HOBBS M.D. DATE OF SURGERY 02/09/2017 PREOPERATIVE DIAGNOSIS Intrauterine at 19+ weeks gestation with an incompetent cervix. POSTOPERATIVE DIAGNOSIS Intrauterine at 19+ weeks gestation with an incompetent cervix. PROCEDURE Chavez cerclage. KETTLE COORDINATOR Dr. Marion Hobbs ANESTHESIA Spinal. Dr. Clark. FINDINGS IN SURGERY A cervix dilated about 4 cm with about 1.5 to 2 cm residual cervix to operate with. Easily visualize amniotic sac with parts moving. BLOOD LOSS Minimal. COMPLICATIONS None. PROCEDURE IN DETAIL After proper consents were obtained, the patient was taken to the operating room where a spinal anesthetic was placed. She was then placed in the dorsal lithotomy position, then Trendelenburg position. She had a very gentle preparation with iodine of the vaginal vault by myself. Inspection with the speculum revealed that the cervix is about 4 cm dilated by visualization. She has about 1.5 to 2 cm of residual cervix. She has a very clearly visualized amniotic sac with parts moving in it. I went ahead and grasped the anterior lip of the cervix with an Allis and then placed a Mersilene suture from 12 o'clock to 9 o'clock, from 9 o'clock to 6 o'clock, 6 o'clock to 3 o'clock, 3 o'clock to 12 o'clock. I was able to do that without injuring the amniotic sac. I went ahead and closed that, placing several ties in the Mersilene band. Good closure of the cervix was noted. No bleeding was noted. Instruments were removed, counts were correct and the patient was stable to the recovery room. MD ALVARO Khan/VINCENT /9:14 AM /7:37 AM OPERATIVE REPORT Pt Name: MAGGIE CRUZMR#: [id number] By:Fatimah Olmedo, [facility] #: [id number] Patient: MAGGIE CRUZ Report #: [id number] Electronically Signed: Marion Hobbs MD Patient: MAGGIE CRUZ Report #: [id number] Electronically Signed: Dion Porter MD, II, MD May 07, 2017 09:43 Chemo Blanco MD May 07, 2017 10:00
[2017-05-07] MEDS ORDERED: CALCIUM GLUCONATE 10% 1 GM/10 ML VIAL IV PUSH PRN (09:45)
[2017-05-07] MEDS ORDERED: SODIUM CHLORIDE 0.9% FLUSH 10 ML FLUSH IV FLUSH PRN (09:45)
--- NOTE | 2017-05-07 09:58 | HHI.HP ---
HPI Chief Complaint Rupture of membranes Date Seen: May 07, 2017 Time Seen: 09:30 Travel History International Travel<30 Days: No Contact w/Intl Traveler<30Days: No Known Affected Area: No History of Present Illness HPI Patient is a 37-year-old at 33 weeks and 0 days gestation presenting to the ED with possible rupture of membranes. Patient states that last night she started to have leakage of clear fluid persists throughout the night. Denies decreased movement, vaginal bleeding, or contractions. This has been complicated by cervical insufficiency, and she had a rescue cerclage placed in January. Patient had also had some elevated blood glucose which she failed a two-hour GTT but passed a 3 hour GTT with an A1c of 6.4. Patient denies fever, chills, nausea vomiting. Weeks Gestation: 33 Para: 2 : 6 History Past Medical History Medical History: Denies Significant Hx Obstetric History Obstetric History . Patient has had 2 abortions and one miscarriage. Had D&C in the past History of this current described in history of present illness Past Surgical History Narrative Surgical D&C No other surgeries Family History Family History: Negative Social History Narrative Social History Patient lives at home with her 2 children, her sister and nephew Denies alcohol, tobacco, illicit drug use Allergies-Medications (Allergen,Severity, Reaction): Coded Allergies: metoclopramide (Unverified Allergy, Severe, SWELLING, 04/20/17) ondansetron (Unverified Allergy, Severe, Swelling, 04/20/17) swelling of the tongue Home Meds Active Scripts Accu-Chek Strips Shelley Plus (Accu-Chek Strips Shelley Plus) 1 Nya Nya, STRIPS .ROUTE DIRECTED for Blood Sugar Management, #1 0 Refills Prov:Penelope Moran MD R2 04/26/17 Accu-Chek Fastclix Lancet (Accu-Chek Fastclix Lancet) 1 Mis Mis, EA .ROUTE DIRECTED for Blood Sugar Management, #1 0 Refills Prov:Penelope Moran MD R2 04/26/17 Blood Glucose Monitoring Suppl (Accu-Chek Shelley Connect W/Device) 1 Kit Kit, KIT .ROUTE DIRECTED for Blood Sugar Management, #1 0 Refills Prov:Penelope Moran MD R2 04/26/17 Ferrous Sulfate (Ferrous Sulfate) 325 Mg (65 Mg Iron) Tablet, 325 MG PO TIDPC for Nutritional Supplement, #90 TAB 3 Refills Prov:Tova Mccauley MD, R3 03/21/17 Vit W/ Ferrous Fumara (Pnv-Select 27-0.6-0.4 mg) 1 Tab Tab, 1 TAB PO DAILY, #30 BOTTLE 11 Refills Prov:HimanshuoPenelope MD R2 01/22/17 Review of Systems Except as stated in HPI: all other systems reviewed are Neg Physical Exam Narrative GENERAL: Well-nourished, well-developed patient. SKIN: Warm and dry. HEAD: Normocephalic and atraumatic. EYES: No scleral icterus. No injection or drainage. ENT: No nasal drainage noted. Mucous membranes pink. Airway patent. NECK: Supple, trachea midline. No JVD. CARDIOVASCULAR: Regular rate and rhythm without murmurs, gallops, or rubs. RESPIRATORY: Breath sounds equal bilaterally. No accessory muscle use. BREASTS: Bilateral exam showed no masses , no retractions, no nipple discharge. ABDOMEN/GI: Abdomen soft, non-tender, bowel sounds present, no rebound, no guarding Gravid to 33 weeks size GENITOURINARY: Bimanual exam not performed at this time due to cerclage FHT's: Category: 1 Baseline: 135 Reactive: Yes Variability: Moderate Decels: None EXTREMITIES: No cyanosis or edema. BACK: Nontender without obvious deformity. No CVA tenderness. NEUROLOGICAL: Awake and alert. Motor and sensory grossly within normal limits. Five out of 5 muscle strength in all muscle groups. Normal speech. Caprini VTE Risk Assessment Caprini VTE Risk Assessment: No/Low Risk (score <= 1) Caprini Risk Assessment Model Point Value = 1 Point Value = 2 Point Value = 3 Point Value = 5 Age 41-60 Minor surgery BMI > 25 kg/m2 Swollen legs Varicose veins or History of unexplained or recurrent spontaneous Oral contraceptives or hormone replacement Sepsis (< 1 month) Serious lung disease, including pneumonia (< 1 month) Abnormal pulmonary function Acute myocardial infarction Congestive heart failure (< 1 month) History of inflammatory bowel disease Medical patient at bed rest Age 61-74 Arthroscopic surgery Major open surgery (> 45 min) Laparoscopic surgery (> 45 min) Malignancy Confined to bed (> 72 hours) Immobilizing plaster cast Central venous access Age >= 75 History of VTE Family history of VTE Factor V Leiden Prothrombin [id number] Lupus anticoagulant Anticardiolipin antibodies Elevated serum homocysteine Heparin-induced thrombocytopenia Other congenital or acquired thrombophilia Stroke (< 1 month) Elective arthroplasty Hip, pelvis, or leg fracture Acute spinal cord injury (< 1 month) Prophylaxis Regimen Total Risk Factor Score Risk Level Prophylaxis Regimen 0-1 Low Early ambulation 2 Moderate Order ONE of the following: *Sequential Compression Device (SCD) *Heparin 5000 units SQ BID 3-4 Higher Order ONE of the following medications: *Heparin 5000 units SQ TID *Enoxaparin/Lovenox 40 mg SQ daily (WT < 150 kg, CrCl > 30 mL/min) *Enoxaparin/Lovenox 30 mg SQ daily (WT < 150 kg, CrCl > 10-29 mL/min) *Enoxaparin/Lovenox 30 mg SQ BID (WT < 150 kg, CrCl > 30 mL/min) AND/OR *Sequential Compression Device (SCD) 5 or more Highest Order ONE of the following medications: *Heparin 5000 units SQ TID (Preferred with Epidurals) *Enoxaparin/Lovenox 40 mg SQ daily (WT < 150 kg, CrCl > 30 mL/min) *Enoxaparin/Lovenox 30 mg SQ daily (WT < 150 kg, CrCl > 10-29 mL/min) *Enoxaparin/Lovenox 30 mg SQ BID (WT < 150 kg, CrCl > 30 mL/min) AND *Sequential Compression Device (SCD) Data Data Orders Orders Fentanyl Inj (Fentanyl Inj) (05/07/17 09:33) Admit To Inpatient (05/07/17 ) Code Status (05/07/17 09:38) Vital Signs (Adult) Q4H (05/07/17 09:38) Activity Bed Rest (05/07/17 09:38) Heart (05/07/17 09:38) ^ Non Stress Test (05/07/17 09:38) Diet Regular Basic (05/07/17 Breakfast) Lactated Ringer's 1000 Ml Inj (Lr 1000 M (05/07/17 09:38) Sodium Chloride 0.9% Flush (Ns Flush) (05/07/17 09:45) Sodium Chloride 0.9% Flush (Ns Flush) (05/07/17 21:00) Acetaminophen (Tylenol) (05/07/17 09:45) Docusate Sodium (Colace) (05/07/17 09:45) Xgohneyq-Kjz-Nbska-Iron Prenat (Stuartna (05/08/17 09:00) Zolpidem (Ambien) (05/07/17 09:45) Complete Blood Count With Diff (05/08/17 06:00) Complete Blood Count With Diff (05/09/17 06:00) Complete Blood Count With Diff (05/10/17 06:00) Hold Clot (05/07/17 09:38) Group B Beta Strep Scrn (Gbs) (05/07/17 09:38) Gc And Chlamydia Pcr (05/07/17 09:38) Drug Screen, Random Urine (05/07/17 09:38) Urinalysis - C+S If Indicated (05/07/17 09:38) Lactated Ringer's 1000 Ml Inj (Lr 1000 M (05/07/17 09:38) Us Ob Limited (05/07/17 ) Inpatient Certification (05/07/17 ) Ampicillin Inj (Ampicillin Inj) (05/07/17 09:45) Magnesium Sulfate 40 Gm Premix (Magnesiu (05/07/17 09:42) Calcium Gluconate Inj (Calcium Gluconate (05/07/17 09:45) Magnesium Sulfate 4 Gm Premix (Magnesium (05/07/17 09:45) Azithromycin Inj (Zithromax Inj) (05/07/17 09:45) Betamethasone Inj (Celestone Soluspan In (05/07/17 10:00) Assessment/Plan Problem List: (1) Short cervix with cervical cerclage in third trimester, antepartum ICD Codes: O26.873 - Cervical shortening, third trimester; O34.33 - Maternal care for cervical incompetence, third trimester (2) PPROM (3) Premature labor ICD Codes: O60.00 - labor without delivery, unspecified trimester Assessment and Plan 37-year-old at 33 weeks and 0 days with cervical cerclage in place presenting to the ED with PPROM and premature contractions. Patient will be admitted. 1. PPROM -Patient reporting leakage of clear fluid -Amnisure positive -Will be admitted and started on GBS prophylaxis with ampicillin 2 g IV every 6 for 48 hours followed by amoxicillin 500 mg orally 3 times a day for 5 days and azithromycin 1000 mg by mouth now (pharmacy is out of erythromycin) -We will give 2 doses of betamethasone (received 2 doses at 19 weeks gestation when cerclage was placed) -Patient will be sent to OB diagnostics for ultrasound and CLAUDE assessment 2. Premature contractions -Monitor showing roughly 5-6 contractions in 1 hour -Will give IV fluids, magnesium 4 g IV loading dose and 2 g IV hourly and fentanyl -UA ordered, GBS ordered -CBC UDS and GC chlamydia ordered 3. Rescue cerclage in place -Patient will likely need surgical cerclage removed if going into labor -Will discuss with Dr. Keene and remove cerclage if needed Discussed with Dr. Keene Made Dr. Moran aware Discharge Planning Discharge date unclear at this time. Will depend heavily on patient's response to treatment Chemo Blanco MD R1 May 07, 2017 09:58
[2017-05-07] MEDS ORDERED: DOCUSATE SODIUM 100 MG CAP PO PRN (11:00)
[2017-05-07] MEDS ORDERED: AZITHROMYCIN 250 MG TAB PO ONE (11:00)
[2017-05-07] MEDS ORDERED: AZITHROMYCIN INJ 500 MG in SODIUM CHLOR 0.9% 250 ML INJ 250 ML IV SCH (11:00)
[2017-05-07] MEDS ORDERED: ACETAMINOPHEN 325 MG TAB PO PRN (11:00)
[2017-05-07] MEDS ORDERED: MAGNESIUM SULFATE 4 GM PREMIX 100 ML IV ONE (11:00)
[2017-05-07] MEDS: BETAMETHASONE SOD PHOS/ACETATE SUSP 30 MG/5 ML VIAL IM SCH (11:24)
[2017-05-07] MEDS: AMPICILLIN INJ 2,000 MG in SODIUM CHLORIDE 0.9% INJ 100 ML IV SCH ×3 (11:25→23:00)
[2017-05-07] MEDS: MAGNESIUM SULFATE 40 GM PREMIX 1,000 ML IV SCH (11:31)
[2017-05-07] MEDS ORDERED: DEXTROSE 50% IN WATER 50 ML VIAL(D50) IV PUSH PRN (13:00)
[2017-05-07] MEDS ORDERED: GLUCAGON 1 MG/ML VIAL OTHER PRN (13:00)
--- NOTE | 2017-05-07 14:03 | HHI.PR ---
Addendum to Inpatient Note Addendum Reason: Additional Documentation Additional Information Procedure: Cerclage removal Sterile speculum was inserted into the vagina until cervix and Mersilene band cerclage were visualized. Amniotic fluid was blotted with sterile gauze to improve visualization. One end of the Mersilene band cerclage was grasped with ring forceps and the Mersilene band cerclage was cut just under the knot at about 12 o'clock, at the most anterior portion of the cervix. There is likely a retained U-shaped Mersilene band retained in the vagina. We will try to extract it with vaginal delivery, hopefully with epidural. The entire procedure was supervised by Dr. Keene. Pt s/d/w Dr. Keene. Jovani Ricardo MD R2 May 07, 2017 14:03
[2017-05-07 15:55] LABS: BLOOD, URINE NEG (NEG); COMMENT (UR) CULT NOT INDICATED; CULTURE IF INDICATED CULT NOT INDICATED; GLUCOSE,URINE NEG (NEG); KETONE, URINE 40 mg/dL (NEG); MUCUS URINE FEW /lpf (OCC); NITRITE,URINE NEG (NEG); PH, URINE 6.5 (5.0-8.5); SQUAMOUS EPITHELIAL CELL URINE 1 /hpf (0-5); URINE COLOR LIGHT-YELLOW (YELLW/STRAW)
[2017-05-07 17:21] LABS: AUTOMATED NEUTROPHIL # 9.3 TH/MM3 (1.8-7.7); BASOPHIL % 0.1 % (0.0-2.0); EOSINOPHIL % 0.1 % (0.0-4.0); HEMATOCRIT 31.9 % (35.0-46.0); HEMO FLAGS DIFF FINAL; LYMPH % 9.7 % (9.0-44.0); MEAN CELL VOLUME 85.7 FL (80.0-100.0); MEAN CORPUSCULAR HEMOGLOBIN 27.6 PG (27.0-34.0); MEAN CORPUSCULAR HGB CONC 32.2 % (32.0-36.0); MONO % 1.8 % (0.0-8.0); NEUT % 88.3 % (16.0-70.0); PLATELET COUNT 225 TH/MM3 (150-450); RED BLOOD COUNT 3.71 MIL/MM3 (4.00-5.30); RED CELL DISTRIBUTION WIDTH 19.6 % (11.6-17.2); WHITE BLOOD COUNT 10.6 TH/MM3 (4.0-11.0)
[2017-05-07 17:38] LABS: ANION GAP 10 MEQ/L (5-15); BICARBONATE 20.8 MEQ/L (21.0-32.0); BLOOD UREA NITROGEN 5 MG/DL (7-18); CHLORIDE 104 MEQ/L (98-107); GLOMERULAR FILTRATION RATE 187 ML/MIN (>89); POTASSIUM 4.1 MEQ/L (3.5-5.1); SODIUM (NA) 135 MEQ/L (136-145)
[2017-05-07 17:41] LABS: ALKALINE PHOSPHATASE 99 U/L (45-117); ALT (GPT) 15 U/L (10-53); AST (GOT) 17 U/L (15-37); TOTAL BILIRUBIN ADULT 0.3 MG/DL (0.2-1.0)
[2017-05-07 18:55] LABS: CHLAMYDIA PCR NOT DETECTED (NOT DETECT); NEISSERIA PCR NOT DETECTED (NOT DETECT)
[2017-05-07] MEDS: ZOLPIDEM TARTRATE 5 MG TAB PO PRN (21:21)
--- NOTE | 2017-05-07 21:31 | HHI.PR ---
Addendum to Inpatient Note Addendum Reason: Additional Documentation Additional Information Consult Maternal Hx: 37 y/o, , 33 weeks gestation mom with diagnosis of PTL and PPROM. History of an incompetent cervix requiring cerclage placement at 19 weeks gestation. Cerclage has now been removed secondary to PTL. Mother admitted to [facility] on 05/07/17 secondary to concerns of premature ROM. Maternal Labs: Blood type A+, Rubella immune, RPR non reactive, Hepatitis B negative, HIV negative, gonorrhea negative, Chlamydia negative, GBS unknown Maternal Medications: PNV, Iron, Betamethasone (1st dose given 05/07) Magnesium Ampicillin Azithromycin x 1 Social: Marital status: single Substance Abuse: Denies Discussion: DESIZING PAD OPERATOR met with mother at bedside. She reported not feeling well but agreed to speak with TEAM ASSISTANT regarding her baby, prematurity, and the NICU. Mom was educated that infants delivered at 33 weeks gestation have an excellent survival rate and generally do very well in the NICU. Having said that, these infants are at risk for having breathing problems to include HMD and/or TTN. Mom was told that her baby may be stable in room air with the assistance of the BMS she is receiving or her baby may require respiratory support to include CPAP /oxygen with the possibility of endotracheal tube placement/surfactant administration as the worst case scenario. Mom was also told that her baby would require peripheral IV placement and IVF for a few days while nasogastric tube feeds were initiated and advanced. Mom was encouraged and agreed to pump to provide breast milk. The benefits of breast milk in relation to prematurity were briefly discussed and she was told that oral feeds would be introduced as the infant showed developmental readiness. Mom was told that infants often have an uncoordinated suck/swallow/breathe pattern and that it takes a couple weeks to learn how to orally feed well. Mom was educated about the potential risk of infection systemically as well as locally in the intestines ( NEC). She was told that breast milk is protective against infection although it does not completely eliminate the risk. Mom was also made aware of the potential for jaundice and potential need for phototherapy. Mom verbalized understanding of the potential complications of a delivery and the most likely therapies that her baby may experience. Mom was told that the NICU is staffed 08/01 by shake maker that one of us would be present at her delivery. Mom was told that she would be able to see and potentially hold her infant prior to transfer to the NICU as long as her baby was clinically stable after delivery. The need for a neutral thermal environment was discussed and that a radiant warmer/isolette would be used. Mom was informed that the would likely be in the NICU for several weeks but that the actual discharge timeframe ultimately depended on the infants course. Discharge criteria were explained to mom. Mom was made aware of resources in the NICU such as daily multidisciplinary rounds, case management support, and pastoral care. She was encouraged to participate in infants care as much as possible and told that the NICU is open essentially 08/01. Mom had no further questions at that time but was encouraged to write down any questions that may arise. She was told that a member of the Neonatology team would be happy to speak with her again if she desired. Greater than 50% of the consultation time was spent with the patient. Mellissa Mcclain May 07, 2017 21:31
[2017-05-08] VITALS (23 sets, daily range): BP systolic 87–118; BP diastolic 48–69; PULSE 96–112; RESP 16–18; TEMP 98–99
[2017-05-08] MEDS: LACTATED RINGER'S 1000 ML INJ 1,000 ML IV SCH (01:38)
[2017-05-08] MEDS: AMPICILLIN INJ 2,000 MG in SODIUM CHLORIDE 0.9% INJ 100 ML IV SCH ×4 (05:00→23:17)
[2017-05-08] MEDS: MAGNESIUM SULFATE 40 GM PREMIX 1,000 ML IV SCH (05:54)
[2017-05-08 06:04] LABS: AUTOMATED NEUTROPHIL # 7.6 TH/MM3 (1.8-7.7); BASOPHIL % 0.2 % (0.0-2.0); HEMATOCRIT 30.3 % (35.0-46.0); HEMO FLAGS DIFF FINAL; LYMPH % 12.7 % (9.0-44.0); LYMPHOCYTE # 1.2 TH/MM3 (1.0-4.8); MEAN CELL VOLUME 86.9 FL (80.0-100.0); MEAN CORPUSCULAR HEMOGLOBIN 28.3 PG (27.0-34.0); MEAN CORPUSCULAR HGB CONC 32.5 % (32.0-36.0); NEUT % 82.1 % (16.0-70.0); PLATELET COUNT 222 TH/MM3 (150-450); RED BLOOD COUNT 3.48 MIL/MM3 (4.00-5.30); RED CELL DISTRIBUTION WIDTH 19.4 % (11.6-17.2); WHITE BLOOD COUNT 9.3 TH/MM3 (4.0-11.0)
[2017-05-08] MEDS: SODIUM CHLORIDE 0.9% FLUSH 10 ML FLUSH IV FLUSH SCH ×2 (07:34→23:17)
[2017-05-08] MEDS: MULTIVIT/MIN/PREN/FOL AC/IRON PRENATAL TAB PO SCH (08:57)
[2017-05-08] MEDS: BETAMETHASONE SOD PHOS/ACETATE SUSP 30 MG/5 ML VIAL IM SCH (11:07)
[2017-05-08] MEDS: ZOLPIDEM TARTRATE 5 MG TAB PO PRN (22:03)
[2017-05-09] VITALS (25 sets, daily range): BP systolic 109–113; BP diastolic 63–72; PULSE 91–110; RESP 17–18; TEMP 97.6–98.6; O2SAT 100
[2017-05-09] MEDS: AMPICILLIN INJ 2,000 MG in SODIUM CHLORIDE 0.9% INJ 100 ML IV SCH (04:57)
[2017-05-09 06:00] LABS: AUTOMATED NEUTROPHIL # 8.4 TH/MM3 (1.8-7.7); BASOPHIL % 0.1 % (0.0-2.0); HEMATOCRIT 28.2 % (35.0-46.0); HEMO FLAGS DIFF FINAL; LYMPH % 14.7 % (9.0-44.0); LYMPHOCYTE # 1.5 TH/MM3 (1.0-4.8); MEAN CELL VOLUME 86.4 FL (80.0-100.0); MEAN CORPUSCULAR HEMOGLOBIN 28.1 PG (27.0-34.0); MEAN CORPUSCULAR HGB CONC 32.6 % (32.0-36.0); MONO % 5.8 % (0.0-8.0); NEUT % 79.4 % (16.0-70.0); PLATELET COUNT 209 TH/MM3 (150-450); RED BLOOD COUNT 3.27 MIL/MM3 (4.00-5.30); RED CELL DISTRIBUTION WIDTH 20.1 % (11.6-17.2); WHITE BLOOD COUNT 10.6 TH/MM3 (4.0-11.0)
[2017-05-09] MEDS ORDERED: LACTATED RINGER'S 1000 ML INJ 1,000 ML IV ONE (10:00)
[2017-05-09] MEDS: SODIUM CHLORIDE 0.9% FLUSH 10 ML FLUSH IV FLUSH SCH ×2 (10:04→22:49)
[2017-05-09] MEDS: MULTIVIT/MIN/PREN/FOL AC/IRON PRENATAL TAB PO SCH (10:04)
--- NOTE | 2017-05-09 11:04 | PD.OB.ANTE ---
Subjective Diagnosis: (1) Short cervix with cervical cerclage in third trimester, antepartum Diagnosis: Principal (2) PPROM Diagnosis: Principal (3) Premature labor Diagnosis: Principal Interval History Patient reports that she just started to feel some low abdominal pain/cramping this morning, which is new for her. Antepartum ROS: Reports: New complaints (crampy lower abdominal pain as above) , Loss of fluid (she presented with PPROM/SROM), movement normal, Contractions (new as of this morning), Denies: Vaginal bleeding (Jovani Ricardo MD R2) Objective Vital Signs Vital Signs Date Time Temp Pulse Resp B/P (MAP) Pulse Ox O2 Delivery O2 Flow Rate FiO2 05/09/17 10:31 97.6 05/09/17 07:34 98.4 05/09/17 07:34 18 05/09/17 05:00 18 05/09/17 04:57 92 109/63 (78) 05/09/17 04:56 98.3 05/09/17 02:40 97.6 05/08/17 23:21 102 93/48 (63) 05/08/17 23:19 98.3 18 05/08/17 21:11 103 108/58 (75) 05/08/17 21:10 98.7 18 05/08/17 18:00 99.0 05/08/17 15:47 112 109/61 (77) 05/08/17 15:46 98.1 16 05/08/17 14:00 98.4 05/08/17 11:57 98.7 05/08/17 11:00 108 16 105/62 (76) 05/08/17 11:00 98.7 Lab & Micro Results Test 05/09/17 05:02 White Blood Count 10.6 TH/MM3 Red Blood Count 3.27 MIL/MM3 Hemoglobin 9.2 GM/DL Hematocrit 28.2 % Mean Corpuscular Volume 86.4 FL Mean Corpuscular Hemoglobin 28.1 PG Mean Corpuscular Hemoglobin Concent 32.6 % Red Cell Distribution Width 20.1 % Platelet Count 209 TH/MM3 Mean Platelet Volume 8.2 FL Neutrophils (%) (Auto) 79.4 % Lymphocytes (%) (Auto) 14.7 % Monocytes (%) (Auto) 5.8 % Eosinophils (%) (Auto) 0.0 % Basophils (%) (Auto) 0.1 % Neutrophils # (Auto) 8.4 TH/MM3 Lymphocytes # (Auto) 1.5 TH/MM3 Monocytes # (Auto) 0.6 TH/MM3 Eosinophils # (Auto) 0.0 TH/MM3 Basophils # (Auto) 0.0 TH/MM3 CBC Comment DIFF FINAL Differential Comment Date/Time Source Procedure Growth Status 05/07/17 17:55 Genital Genital Region Group B Streptococcus Screen - Preliminary RESULTS PENDING Resulted Physical Exam GENERAL: Well-nourished, well-developed patient. CARDIOVASCULAR: Regular rate and rhythm without murmurs, gallops, or rubs. RESPIRATORY: Breath sounds equal bilaterally. No accessory muscle use. ABDOMEN/GI: Abdomen soft, non-tender. Fundus: c/w 33 week gestation GENITOURINARY: External Genitalia: Uterine Contractions: Every 3 minutes starting at around 9:30 AM, then none after FHT's: Category: Cat I Baseline: 140 Reactive: reactive Variability: moderate Decels: none EXTREMITIES: No cyanosis or edema, non-tender, without signs of DVT. (Jovani Ricardo MD R2) Assessment and Plan Problem List: (1) Short cervix with cervical cerclage in third trimester, antepartum ICD Codes: O26.873 - Cervical shortening, third trimester; O34.33 - Maternal care for cervical incompetence, third trimester (2) PPROM (3) Premature labor ICD Codes: O60.00 - labor without delivery, unspecified trimester Assessment and Plan 37-year-old at 33 weeks and 2 days p/w PPROM and new premature contractions as of this morning. 1. PPROM -Patient reporting leakage of clear fluid, which was found to be Amnisure positive -Cerclage was removed on 05/07 -Patient receiving antibiotics as follows: ampicillin 2 g IV every 6 for the first 48 hours followed by amoxicillin 500 mg orally 3 times a day for 5 days; she received azithromycin 1000 mg by mouth x1 on admission (pharmacy was out of erythromycin) -2 doses of betamethasone given this admission (05/07-05/08; pt received 2 doses at 19 weeks gestation when cerclage was placed) -Patient received 24 hours of IV magnesium -OB diagnostic ultrasound showed normal amniotic fluid, normal cardiac rate and rhythm, good movement and tone. 2. Premature contractions -Monitor showed contractions q3min, which have since resolved with LR IV bolus -Will consider other tocolytics as needed -UA unremarkable, GBS PCR negative -CBC stable, UDS negative, and GC chlamydia not detected s/d/w Dr. Olmedo (Jovani Ricardo MD R2) Assessment and Plan I was present, personally saw and examined patient, and was involved in all sharp decision making portions. SMS (Fatimah Olmedo MD) Jovani Ricardo MD R2 May 09, 2017 11:04 Fatimah Olmedo MD May 20, 2017 18:53
[2017-05-09] MEDS: AMOXICILLIN (TRIHYDRATE) 500 MG CAP PO SCH ×2 (14:01→22:49)
[2017-05-09] MEDS: ZOLPIDEM TARTRATE 5 MG TAB PO PRN (22:49)
[2017-05-10] VITALS (9 sets, daily range): BP systolic 101–121; BP diastolic 61–85; PULSE 89–120; RESP 17–18; TEMP 98.1–98.4
[2017-05-10 05:58] LABS: AUTOMATED NEUTROPHIL # 6.2 TH/MM3 (1.8-7.7); BASOPHIL % 0.2 % (0.0-2.0); EOSINOPHIL % 0.4 % (0.0-4.0); HEMATOCRIT 27.5 % (35.0-46.0); HEMO FLAGS DIFF FINAL; LYMPH % 24.5 % (9.0-44.0); LYMPHOCYTE # 2.3 TH/MM3 (1.0-4.8); MEAN CELL VOLUME 86.6 FL (80.0-100.0); MEAN CORPUSCULAR HEMOGLOBIN 28.1 PG (27.0-34.0); MEAN CORPUSCULAR HGB CONC 32.4 % (32.0-36.0); MONO % 9.4 % (0.0-8.0); NEUT % 65.5 % (16.0-70.0); PLATELET COUNT 206 TH/MM3 (150-450); RED BLOOD COUNT 3.17 MIL/MM3 (4.00-5.30); RED CELL DISTRIBUTION WIDTH 19.9 % (11.6-17.2); WHITE BLOOD COUNT 9.5 TH/MM3 (4.0-11.0)
[2017-05-10] MEDS: AMOXICILLIN (TRIHYDRATE) 500 MG CAP PO SCH ×3 (06:06→21:51)
--- NOTE | 2017-05-10 08:26 | PD.OB.ANTE ---
Subjective Diagnosis: (1) Short cervix with cervical cerclage in third trimester, antepartum Diagnosis: Principal (2) PPROM Diagnosis: Principal (3) Premature labor Diagnosis: Principal Interval History Patient continues to report occasional lower abdominal cramping. She does not believe that these to be true contractions and has not appreciated any shortening of interval or increasing intensity. She continues to have some loss of fluid. Denies any decrease in movement, vaginal bleeding. Denies chest pain, shortness of breath, dysuria, fevers or chills Objective Vital Signs Vital Signs Date Time Temp Pulse Resp B/P (MAP) Pulse Ox O2 Delivery O2 Flow Rate FiO2 05/10/17 08:00 18 05/10/17 08:00 98.1 05/09/17 20:33 93 113/70 (84) 05/09/17 20:32 98.6 18 05/09/17 17:36 99 111/72 (85) 05/09/17 17:00 17 05/09/17 16:22 98.1 05/09/17 14:25 92 100 05/09/17 14:20 96 100 05/09/17 14:15 100 05/09/17 14:15 110 05/09/17 14:10 100 05/09/17 14:10 93 05/09/17 14:05 100 05/09/17 14:05 94 05/09/17 14:00 94 05/09/17 14:00 100 05/09/17 13:55 106 100 05/09/17 13:52 18 05/09/17 13:50 91 100 05/09/17 13:45 91 100 05/09/17 13:40 91 100 05/09/17 13:35 97 100 05/09/17 13:33 98.5 05/09/17 11:36 93 111/68 (82) 05/09/17 10:31 97.6 Lab & Micro Results Test 05/10/17 04:53 White Blood Count 9.5 TH/MM3 Red Blood Count 3.17 MIL/MM3 Hemoglobin 8.9 GM/DL Hematocrit 27.5 % Mean Corpuscular Volume 86.6 FL Mean Corpuscular Hemoglobin 28.1 PG Mean Corpuscular Hemoglobin Concent 32.4 % Red Cell Distribution Width 19.9 % Platelet Count 206 TH/MM3 Mean Platelet Volume 8.3 FL Neutrophils (%) (Auto) 65.5 % Lymphocytes (%) (Auto) 24.5 % Monocytes (%) (Auto) 9.4 % Eosinophils (%) (Auto) 0.4 % Basophils (%) (Auto) 0.2 % Neutrophils # (Auto) 6.2 TH/MM3 Lymphocytes # (Auto) 2.3 TH/MM3 Monocytes # (Auto) 0.9 TH/MM3 Eosinophils # (Auto) 0.0 TH/MM3 Basophils # (Auto) 0.0 TH/MM3 CBC Comment DIFF FINAL Differential Comment Date/Time Source Procedure Growth Status 05/07/17 17:55 Genital Genital Region Group B Streptococcus Screen - Preliminary NO GROUP B STREP ISOLATED Resulted Physical Exam GENERAL: Well-nourished, well-developed patient. CARDIOVASCULAR: Regular rate and rhythm without murmurs, gallops, or rubs. RESPIRATORY: Breath sounds equal bilaterally. No accessory muscle use. ABDOMEN/GI: Abdomen soft, non-tender. Fundus: 33 GENITOURINARY: FHT's: Category: 1 Baseline: 140 Reactive: Yes Variability: Moderate Decels: Absent EXTREMITIES: No cyanosis or edema, non-tender, without signs of DVT. Assessment and Plan Problem List: (1) Short cervix with cervical cerclage in third trimester, antepartum ICD Codes: O26.873 - Cervical shortening, third trimester; O34.33 - Maternal care for cervical incompetence, third trimester (2) PPROM (3) Premature labor ICD Codes: O60.00 - labor without delivery, unspecified trimester Assessment and Plan 37-year-old at 33 weeks and 3 days p/w PPROM. Will plan to induce at 34 weeks. 1. PPROM -Patient reporting leakage of clear fluid, which was found to be Amnisure positive -Cerclage was removed on 05/07 -Patient receiving antibiotics as follows: ampicillin 2 g IV every 6 for the first 48 hours followed by amoxicillin 500 mg orally 3 times a day for 5 days; she received azithromycin 1000 mg by mouth x1 on admission (pharmacy was out of erythromycin) -2 doses of betamethasone given this admission (05/07-05/08; pt received 2 doses at 19 weeks gestation when cerclage was placed) -Patient received 24 hours of IV magnesium -OB diagnostic ultrasound showed normal amniotic fluid, normal cardiac rate and rhythm, good movement and tone. 2. Premature contractions (currently resolved) -Monitor showed contractions q3min on 05/09, which resolved with LR IV bolus -No need for tocolytics at this time -UA unremarkable, GBS PCR negative -CBC stable, UDS negative, and GC chlamydia not detected s/d/w Chemo Gould MD R1 May 10, 2017 08:26
[2017-05-10] MEDS: SODIUM CHLORIDE 0.9% FLUSH 10 ML FLUSH IV FLUSH SCH ×2 (09:53→21:51)
[2017-05-10] MEDS: MULTIVIT/MIN/PREN/FOL AC/IRON PRENATAL TAB PO SCH (09:53)
[2017-05-10] MEDS: ZOLPIDEM TARTRATE 5 MG TAB PO PRN (21:51)
[2017-05-11] VITALS (8 sets, daily range): BP systolic 101–137; BP diastolic 63–80; PULSE 97–103; RESP 16–18; TEMP 98.3–98.6
[2017-05-11] MEDS: AMOXICILLIN (TRIHYDRATE) 500 MG CAP PO SCH ×3 (06:23→22:19)
--- NOTE | 2017-05-11 08:12 | PD.OB.ANTE ---
Subjective Diagnosis: (1) Short cervix with cervical cerclage in third trimester, antepartum Diagnosis: Principal (2) PPROM Diagnosis: Principal (3) Premature labor Diagnosis: Principal Interval History Patient has complaints of abdominal cramping, mild in nature, denies any feeling of contractions. She continues to have some loss of fluid. +FM. Denies VB. Specifically denies any fevers, CP, SOB, cough. Antepartum ROS: Reports: New complaints (Abdominal cramping as above), Loss of fluid (Endorses small amount of leakage of fluid), movement normal, Denies: Vaginal bleeding, Contractions Objective Vital Signs Vital Signs Date Time Temp Pulse Resp B/P (MAP) Pulse Ox O2 Delivery O2 Flow Rate FiO2 05/10/17 19:22 120 121/85 (97) 05/10/17 19:22 98.3 05/10/17 16:16 98.1 18 05/10/17 16:09 96 101/61 (74) 05/10/17 13:00 17 05/10/17 11:41 18 05/10/17 11:00 98.4 05/10/17 09:36 17 05/10/17 08:13 89 117/65 (82) Lab & Micro Results Date/Time Source Procedure Growth Status 05/07/17 17:55 Genital Genital Region Group B Streptococcus Screen - Final NO GROUP B STREP ISOLATED Complete Physical Exam GENERAL: Well-nourished, well-developed patient. CARDIOVASCULAR: Regular rate and rhythm without murmurs, gallops, or rubs. RESPIRATORY: Breath sounds equal bilaterally. No accessory muscle use. ABDOMEN/GI: Abdomen soft, non-tender. Fundus: 33 GENITOURINARY: FHT's: Category: 1 Baseline: 150s Reactive: Yes Variability: Moderate Decels: Absent EXTREMITIES: No cyanosis or edema, non-tender, without signs of DVT. Assessment and Plan Problem List: (1) Short cervix with cervical cerclage in third trimester, antepartum ICD Codes: O26.873 - Cervical shortening, third trimester; O34.33 - Maternal care for cervical incompetence, third trimester (2) PPROM (3) Premature labor ICD Codes: O60.00 - labor without delivery, unspecified trimester Assessment and Plan 37-year-old at 33 weeks and 4 days p/w PPROM. Will plan to induce at 34 weeks. 1. PPROM -Patient reporting leakage of clear fluid, which was found to be Amnisure positive -Cerclage was removed on 05/07 -Patient receiving antibiotics as follows: ampicillin 2 g IV every 6 for the first 48 hours followed by amoxicillin 500 mg orally 3 times a day for 5 days; she received azithromycin 1000 mg by mouth x1 on admission (pharmacy was out of erythromycin) -2 doses of betamethasone given this admission (05/07-05/08; pt received 2 doses at 19 weeks gestation when cerclage was placed) -Patient received 24 hours of IV magnesium -OB diagnostic ultrasound showed normal amniotic fluid, normal cardiac rate and rhythm, good movement and tone. 2. Premature contractions (currently resolved) -Monitor showed contractions q3min on 05/09, which resolved with LR IV bolus -No need for tocolytics at this time -UA unremarkable, GBS PCR negative -CBC stable, UDS negative, and GC chlamydia not detected wdw Mono Calero MD R2 May 11, 2017 08:12
[2017-05-11] MEDS: MULTIVIT/MIN/PREN/FOL AC/IRON PRENATAL TAB PO SCH (08:34)
[2017-05-11] MEDS: SODIUM CHLORIDE 0.9% FLUSH 10 ML FLUSH IV FLUSH SCH ×2 (08:34→20:25)
[2017-05-11 10:39] LABS: AUTOMATED NEUTROPHIL # 5.4 TH/MM3 (1.8-7.7); BASOPHIL % 0.4 % (0.0-2.0); EOSINOPHIL # 0.1 TH/MM3 (0-0.4); EOSINOPHIL % 0.7 % (0.0-4.0); HEMATOCRIT 31.6 % (35.0-46.0); HEMO FLAGS DIFF FINAL; LYMPH % 24.2 % (9.0-44.0); MEAN CELL VOLUME 86.9 FL (80.0-100.0); MEAN CORPUSCULAR HEMOGLOBIN 28.3 PG (27.0-34.0); MEAN CORPUSCULAR HGB CONC 32.5 % (32.0-36.0); MONO % 7.9 % (0.0-8.0); NEUT % 66.8 % (16.0-70.0); PLATELET COUNT 214 TH/MM3 (150-450); RED BLOOD COUNT 3.64 MIL/MM3 (4.00-5.30); RED CELL DISTRIBUTION WIDTH 19.4 % (11.6-17.2); WHITE BLOOD COUNT 8.1 TH/MM3 (4.0-11.0)
[2017-05-11] MEDS: ZOLPIDEM TARTRATE 5 MG TAB PO PRN (22:19)
[2017-05-12] VITALS (8 sets, daily range): BP systolic 95–115; BP diastolic 54–79; PULSE 97–108; RESP 14–16; TEMP 97.9–99.1
[2017-05-12] MEDS: AMOXICILLIN (TRIHYDRATE) 500 MG CAP PO SCH ×3 (06:13→22:14)
[2017-05-12] MEDS: SODIUM CHLORIDE 0.9% FLUSH 10 ML FLUSH IV FLUSH SCH ×2 (08:28→22:19)
[2017-05-12] MEDS: MULTIVIT/MIN/PREN/FOL AC/IRON PRENATAL TAB PO SCH (08:50)
--- NOTE | 2017-05-12 09:44 | PD.OB.ANTE ---
Subjective Diagnosis: (1) Short cervix with cervical cerclage in third trimester, antepartum Diagnosis: Principal (2) PPROM Diagnosis: Principal (3) Premature labor Diagnosis: Principal Interval History Patient is a 37-year-old at 33 and 5/7 weeks today. No new symptoms today. She continues to have small leak of fluid. She denies symptoms today. Of note she has a gestational diabetic based on three-hour GTT as an outpatient. She had just gotten this lab result a few days prior to admission. Antepartum ROS: Reports: Loss of fluid, movement normal, Denies: New complaints, Vaginal bleeding, Contractions Objective Vital Signs Vital Signs Date Time Temp Pulse Resp B/P (MAP) Pulse Ox O2 Delivery O2 Flow Rate FiO2 05/12/17 08:10 16 05/12/17 08:08 98.5 05/12/17 08:08 100 115/79 (91) 05/12/17 04:00 98.3 14 05/12/17 04:00 97 95/58 (70) 05/11/17 19:42 97 137/79 (98) 05/11/17 19:40 16 05/11/17 19:40 98.3 05/11/17 16:55 98.5 05/11/17 16:55 18 05/11/17 16:54 98 101/63 (76) 05/11/17 12:38 103 118/63 (81) 05/11/17 12:37 98.6 16 Lab & Micro Results Test 05/11/17 10:23 White Blood Count 8.1 TH/MM3 Red Blood Count 3.64 MIL/MM3 Hemoglobin 10.3 GM/DL Hematocrit 31.6 % Mean Corpuscular Volume 86.9 FL Mean Corpuscular Hemoglobin 28.3 PG Mean Corpuscular Hemoglobin Concent 32.5 % Red Cell Distribution Width 19.4 % Platelet Count 214 TH/MM3 Mean Platelet Volume 8.0 FL Neutrophils (%) (Auto) 66.8 % Lymphocytes (%) (Auto) 24.2 % Monocytes (%) (Auto) 7.9 % Eosinophils (%) (Auto) 0.7 % Basophils (%) (Auto) 0.4 % Neutrophils # (Auto) 5.4 TH/MM3 Lymphocytes # (Auto) 2.0 TH/MM3 Monocytes # (Auto) 0.6 TH/MM3 Eosinophils # (Auto) 0.1 TH/MM3 Basophils # (Auto) 0.0 TH/MM3 CBC Comment DIFF FINAL Differential Comment Date/Time Source Procedure Growth Status 05/07/17 17:55 Genital Genital Region Group B Streptococcus Screen - Final NO GROUP B STREP ISOLATED Complete Physical Exam GENERAL: Well-nourished, well-developed patient. CARDIOVASCULAR: Regular rate and rhythm without murmurs, gallops, or rubs. RESPIRATORY: Breath sounds equal bilaterally. No accessory muscle use. ABDOMEN/GI: Abdomen soft, non-tender. Fundus: nontender GENITOURINARY: External Genitalia: deferred Uterine Contractions: absent on monitor FHT's: Category: 2 Baseline: 130s Reactive: y to 150s Variability: moderate Decels: 1 variable EXTREMITIES: No cyanosis or edema, non-tender, without signs of DVT. Assessment and Plan Problem List: (1) Short cervix with cervical cerclage in third trimester, antepartum ICD Codes: O26.873 - Cervical shortening, third trimester; O34.33 - Maternal care for cervical incompetence, third trimester (2) PPROM (3) Premature labor ICD Codes: O60.00 - labor without delivery, unspecified trimester Assessment and Plan 37-year-old at 33 weeks and 5/7 days. EDC 06/25/2017. Admitted with PPROM. Plan is to induce at 34 weeks. 1. IUP -Category 2 tracing, consistent with gestational age -No ctx 2. PPROM -Patient reporting leakage of clear fluid, which was found to be Amnisure positive -Cerclage was removed on 05/07 -Patient received/receiving antibiotics as follows: ampicillin 2 g IV every 6 for the first 48 hours followed by amoxicillin 500 mg orally 3 times a day for 5 days; she received azithromycin 1000 mg by mouth x1 on admission (pharmacy was out of erythromycin) -2 doses of betamethasone given this admission (05/07-05/08; pt received 2 doses at 19 weeks gestation when cerclage was placed) -Patient received 24 hours of IV magnesium for cardioprotection -OB diagnostic ultrasound showed normal amniotic fluid, normal cardiac rate and rhythm, good movement and tone. 3. Premature contractions (currently resolved) -Monitor showed contractions q3min on 05/09, which resolved with LR IV bolus -No need for tocolytics at this time -UA unremarkable, GBS PCR negative -CBC stable, UDS negative, and GC chlamydia not detected 4. Gestational Diabetes -will check BSG fasting and 2hr post-prandial -OB carb consistent diet SDW Marilynn Simental MD R2 May 12, 2017 09:44
[2017-05-12] MEDS ORDERED: DEXTROSE 50% IN WATER 50 ML VIAL(D50) IV PUSH PRN (12:30)
[2017-05-12] MEDS ORDERED: GLUCAGON 1 MG/ML VIAL OTHER PRN (12:30)
[2017-05-12] MEDS ORDERED: INDIVIDUALIZED INSULIN NOVOLIN REGULAR SUPPLEMENTAL SCALE SQ SCH (12:30)
[2017-05-12] MEDS: INDIVIDUALIZED INSULIN NOVOLIN REGULAR SUPPLEMENTAL SCALE SQ SCH ×2 (15:00→22:17)
[2017-05-12] MEDS: ZOLPIDEM TARTRATE 5 MG TAB PO PRN (22:14)
[2017-05-13] VITALS (7 sets, daily range): BP systolic 98–114; BP diastolic 58–75; PULSE 100–106; RESP 18; TEMP 98–99
[2017-05-13] MEDS: AMOXICILLIN (TRIHYDRATE) 500 MG CAP PO SCH ×2 (06:33→14:05)
[2017-05-13] MEDS: INDIVIDUALIZED INSULIN NOVOLIN REGULAR SUPPLEMENTAL SCALE SQ SCH ×4 (08:00→22:12)
--- NOTE | 2017-05-13 08:22 | PD.OB.ANTE ---
Subjective Diagnosis: (1) Short cervix with cervical cerclage in third trimester, antepartum Diagnosis: Principal (2) PPROM Diagnosis: Principal (3) Premature labor Diagnosis: Principal Interval History Patient is a 37-year-old at 33 and 5/7 weeks today. No new symptoms today. She continues to have small to moderate leak of fluid. She has some abdominal cramping today. Of note she has a gestational diabetic based on three- hour GTT as an outpatient. Last dose of PO amoxicillin will be today. Antepartum ROS: Reports: movement normal, Denies: New complaints, Loss of fluid, Vaginal bleeding, Contractions Objective Vital Signs Vital Signs Date Time Temp Pulse Resp B/P (MAP) Pulse Ox O2 Delivery O2 Flow Rate FiO2 05/13/17 07:56 99.0 18 05/13/17 07:54 103 113/73 (86) 05/12/17 22:21 108 98/54 (69) 05/12/17 19:25 98.7 98 16 107/71 (83) 05/12/17 16:27 99.1 16 05/12/17 16:22 107 110/66 (81) 05/12/17 12:12 97.9 16 05/12/17 12:12 108 104/58 (73) Lab & Micro Results Date/Time Source Procedure Growth Status 05/07/17 17:55 Genital Genital Region Group B Streptococcus Screen - Final NO GROUP B STREP ISOLATED Complete Physical Exam GENERAL: Well-nourished, well-developed patient. CARDIOVASCULAR: Regular rate and rhythm without murmurs, gallops, or rubs. RESPIRATORY: Breath sounds equal bilaterally. No accessory muscle use. ABDOMEN/GI: Abdomen soft, non-tender. Fundus: nontender GENITOURINARY: External Genitalia: deferred Uterine Contractions: absent on monitor FHT's: Category: 2 Baseline: 130s Reactive: y to 150s Variability: moderate Decels: 1 variable EXTREMITIES: No cyanosis or edema, non-tender, without signs of DVT. Assessment and Plan Problem List: (1) Short cervix with cervical cerclage in third trimester, antepartum ICD Codes: O26.873 - Cervical shortening, third trimester; O34.33 - Maternal care for cervical incompetence, third trimester (2) PPROM (3) Premature labor ICD Codes: O60.00 - labor without delivery, unspecified trimester Assessment and Plan 37-year-old at 33 weeks and 5/7 days. EDC 06/25/2017. Admitted with PPROM. Plan is to induce at 34 weeks, on 05/14/2017. care is with Dr. Moran. 1. IUP -Category 2 tracing, consistent with gestational age -Continue BID NSTs -No ctx 2. PPROM -Patient reporting leakage of clear fluid, which was found to be Amnisure positive -Cerclage was removed on 05/07 -Patient received/receiving antibiotics as follows: ampicillin 2 g IV every 6 for the first 48 hours followed by amoxicillin 500 mg orally 3 times a day for 5 days; she received azithromycin 1000 mg by mouth x1 on admission (pharmacy was out of erythromycin) -2 doses of betamethasone given this admission (05/07-05/08; pt received 2 doses at 19 weeks gestation when cerclage was placed) -Patient received 24 hours of IV magnesium for cardioprotection -OB diagnostic ultrasound showed normal amniotic fluid, normal cardiac rate and rhythm, good movement and tone. 3. Premature contractions (currently resolved) -Monitor showed contractions q3min on 05/09, which resolved with LR IV bolus -No need for tocolytics at this time -UA unremarkable, GBS PCR negative -CBC stable, UDS negative, and GC chlamydia not detected 4. Gestational Diabetes -will check BSG fasting and 2hr post-prandial -OB carb consistent diet DW Marilynn Iglesias MD R2 May 13, 2017 08:22
[2017-05-13] MEDS: MULTIVIT/MIN/PREN/FOL AC/IRON PRENATAL TAB PO SCH (08:49)
[2017-05-13] MEDS: SODIUM CHLORIDE 0.9% FLUSH 10 ML FLUSH IV FLUSH SCH (08:50)
[2017-05-13] MEDS ORDERED: MISOPROSTOL 100 MCG TAB ONE (20:54)
[2017-05-13] MEDS: LACTATED RINGER'S 1000 ML IV SCH (23:30)
[2017-05-14] VITALS (100 sets, daily range): BP systolic 77–126; BP diastolic 39–92; PULSE 88–116; RESP 14–24; TEMP 97.2–98.4; O2SAT 100
[2017-05-14] MEDS ORDERED: SODIUM CHLORIDE 0.9% FLUSH 10 ML FLUSH IV FLUSH PRN ×3 (00:30→22:45)
[2017-05-14] MEDS: MISOPROSTOL 100 MCG TAB VAGINAL SCH ×6 (00:30→20:15)
[2017-05-14] MEDS: SODIUM CHLORIDE 0.9% FLUSH 10 ML FLUSH IV FLUSH SCH ×3 (00:30→20:15)
[2017-05-14] MEDS ORDERED: OXYTOCIN 30 UNITS-500ML PREMIX 500 ML IV SCH ×3 (00:30→22:30)
[2017-05-14] MEDS: LACTATED RINGER'S 1000 ML IV SCH ×3 (02:17→16:06)
[2017-05-14] MEDS ORDERED: fentaNYL 2MCG-BUPIV 0.125% INJ 100 ML ONE (02:29)
[2017-05-14] MEDS ORDERED: ePHEDrine/NS 25 MG/5 ML SYR IV PUSH PRN (03:30)
[2017-05-14] MEDS ORDERED: NO SYSTEM NARCOTICS PRN (03:30)
[2017-05-14] MEDS ORDERED: DO NOT ADMINISTER ANTICOAGULANTS PRN (03:30)
[2017-05-14] MEDS ORDERED: OXYTOCIN 30 UNITS/NS 500ML PREMIX IV SCH (05:15)
[2017-05-14] MEDS ORDERED: MINERAL OIL 10 ML VIAL TOPICAL PRN (06:15)
[2017-05-14] MEDS ORDERED: NS 1000 ML IV PRN (06:15)
[2017-05-14] MEDS ORDERED: NS 500 ML BOLUS IV PRN (06:15)
[2017-05-14] MEDS ORDERED: LIDOCAINE HCL 1% 50 ML VIAL I-DERMAL PRN (06:15)
[2017-05-14] MEDS ORDERED: LIDOCAINE HCL 1% 50 ML VIAL INFIL PRN (06:15)
[2017-05-14] MEDS ORDERED: OXYTOCIN 30 UNITS 500ML PREMIX IV ONE (06:15)
[2017-05-14] MEDS ORDERED: LACTATED RINGER'S 1000 ML BOLUS IV PRN (06:15)
[2017-05-14] MEDS ORDERED: CITRIC ACID-SODIUM CITRATE LIQ 30 ML UDC PO SCH (06:15)
[2017-05-14] MEDS: INDIVIDUALIZED INSULIN NOVOLIN REGULAR SUPPLEMENTAL SCALE SQ SCH ×4 (08:00→20:22)
--- NOTE | 2017-05-14 09:06 | PD.LABORPN ---
Subjective Subjective Doing well. She has an epidural that was started because there were remnants of her cerclage that had to be removed and she had trouble tolerating the procedure. His cervical laceration was repaired. IUPC was placed to better characterize contractions. Objective Vital Signs Vital Signs Date Time Temp Pulse Resp B/P (MAP) Pulse Ox O2 Delivery O2 Flow Rate FiO2 05/14/17 08:40 101 108/70 (83) 05/14/17 08:20 107 108/58 (75) 05/14/17 08:00 97 101/66 (78) 05/14/17 07:40 92 106/66 (79) 05/14/17 07:24 17 05/14/17 07:23 97.6 05/14/17 07:20 94 108/69 (82) 05/14/17 06:40 98 113/68 (83) 05/14/17 06:20 18 05/14/17 06:20 100 116/67 (83) 05/14/17 06:10 18 05/14/17 06:00 96 109/65 (80) 05/14/17 05:45 18 05/14/17 05:40 103 110/70 (83) 05/14/17 05:30 98.4 05/14/17 05:22 18 05/14/17 05:18 18 05/14/17 05:15 18 05/14/17 05:15 102 105/66 (79) 05/14/17 05:09 105 05/14/17 05:04 102 05/14/17 05:00 98 99/53 (68) 05/14/17 04:44 97 05/14/17 04:40 97 99/60 (73) 05/14/17 04:39 102 05/14/17 04:34 97 05/14/17 04:20 102 18 101/61 (74) 05/14/17 04:19 108 05/14/17 04:11 18 05/14/17 04:09 109 05/14/17 04:04 112 05/14/17 04:00 110 109/62 (78) 05/14/17 04:00 18 05/14/17 03:59 110 05/14/17 03:54 109 05/14/17 03:49 109 93/50 (64) 05/14/17 03:49 111 05/14/17 03:46 114 86/39 (55) 05/14/17 03:45 18 05/14/17 03:44 116 05/14/17 03:40 110 88/49 (62) 05/14/17 03:39 111 05/14/17 03:34 104 05/14/17 03:31 95 113/66 (82) 05/14/17 03:29 93 05/14/17 03:26 101 97/56 (70) 05/14/17 03:24 106 05/14/17 03:22 94 83/40 (54) 05/14/17 03:20 99 77/43 (54) 05/14/17 03:19 105 05/14/17 03:11 109 106/52 (70) 05/14/17 03:09 104 05/14/17 03:08 18 05/14/17 03:05 96 120/64 (82) 05/14/17 03:04 100 05/14/17 03:00 98 119/68 (85) 05/14/17 02:59 99 05/14/17 02:55 97 116/69 (85) 05/14/17 02:54 97 05/14/17 02:50 92 120/76 (91) 05/14/17 02:49 90 05/14/17 02:49 18 05/14/17 02:45 97 122/74 (90) 05/14/17 02:45 18 05/14/17 02:45 98.4 05/14/17 02:44 93 05/14/17 02:40 89 126/77 (93) 05/14/17 02:39 94 05/14/17 02:35 104 124/92 (103) 05/14/17 02:34 96 05/14/17 02:33 94 126/83 (97) Objective Pelvic Exam: Cervix: Mid position Dilatation: 6 cm Effacement: 80% Station: -2 Presentation: Cephalic Membranes: Ruptured Uterine Contractions: q2-3 mins FHT's: Category: 1 Baseline: 130 Reactive: Up to 155 Variability: Moderate Decels: None Weeks Gestation: 34 Pt started active labor?: Yes Active labor start date: May 14, 2017 Active labor start time: 12:30 Medical induction of labor?: Yes Medical induction start date: May 14, 2017 Medical induction start time: 12:30 Artificial rupture of membrane: No Assessment/Plan Problem List: (1) Short cervix with cervical cerclage in third trimester, antepartum ICD Codes: O26.873 - Cervical shortening, third trimester; O34.33 - Maternal care for cervical incompetence, third trimester (2) PPROM (3) Premature labor ICD Codes: O60.00 - labor without delivery, unspecified trimester Assessment and Plan 37 year old at 34 weeks gestation,GBS-, complicated by cervical incompetence with funneling, gestational diabetes, and premature rupture of membranes admitted for labor Intrauterine , heart tones category 1, reassuring -Cervical exam: 680/-2 -Labor augmented with Pitocin, titrate per protocol -Contractions occurring every 2-3 minutes -Epidural in place -Continue routine antepartum care -Expect vaginal delivery Penelope Moran MD R2 May 14, 2017 09:06
[2017-05-14 09:33] LABS: AUTOMATED NEUTROPHIL # 7.8 TH/MM3 (1.8-7.7); BASOPHIL % 0.3 % (0.0-2.0); EOSINOPHIL % 0.3 % (0.0-4.0); HEMATOCRIT 31.5 % (35.0-46.0); HEMO FLAGS DIFF FINAL; LYMPH % 19.7 % (9.0-44.0); LYMPHOCYTE # 2.1 TH/MM3 (1.0-4.8); MEAN CELL VOLUME 87.1 FL (80.0-100.0); MEAN CORPUSCULAR HGB CONC 32.2 % (32.0-36.0); NEUT % 72.7 % (16.0-70.0); PLATELET COUNT 226 TH/MM3 (150-450); RED BLOOD COUNT 3.62 MIL/MM3 (4.00-5.30); RED CELL DISTRIBUTION WIDTH 19.7 % (11.6-17.2); WHITE BLOOD COUNT 10.7 TH/MM3 (4.0-11.0)
[2017-05-14] MEDS: MULTIVIT/MIN/PREN/FOL AC/IRON PRENATAL TAB PO SCH (09:57)
[2017-05-14] MEDS: fentaNYL 2MCG-BUPIV 0.125% 100 ML EPIDURAL SCH ×2 (09:58→17:17)
--- NOTE | 2017-05-14 14:06 | PD.LABORPN ---
Subjective Subjective Patient is doing okay, Pitocin at 18. Objective Vital Signs Vital Signs Date Time Temp Pulse Resp B/P (MAP) Pulse Ox O2 Delivery O2 Flow Rate FiO2 05/14/17 10:20 96 90/42 (58) 05/14/17 10:00 102 105/62 (76) 05/14/17 09:40 103 97/51 (66) 05/14/17 09:00 95 106/71 (83) 05/14/17 08:40 101 108/70 (83) 05/14/17 08:20 107 108/58 (75) 05/14/17 08:00 97 101/66 (78) 05/14/17 07:40 92 106/66 (79) 05/14/17 07:24 17 05/14/17 07:23 97.6 05/14/17 07:20 94 108/69 (82) 05/14/17 06:40 98 113/68 (83) 05/14/17 06:20 18 05/14/17 06:20 100 116/67 (83) 05/14/17 06:10 18 Objective Pelvic Exam: Cervix: Mid position Dilatation: 8 cm Effacement: 90-100% Station: -2 Presentation: Cephalic Membranes: Ruptured Uterine Contractions: q2-3 mins FHT's: Category: 1 Baseline: 130 Reactive: Up to 150 Variability: Moderate Decels: None Weeks Gestation: 34 Pt started active labor?: Yes Active labor start date: May 14, 2017 Active labor start time: 12:30 Medical induction of labor?: Yes Medical induction start date: May 14, 2017 Medical induction start time: 12:30 Artificial rupture of membrane: No Assessment/Plan Problem List: (1) Short cervix with cervical cerclage in third trimester, antepartum ICD Codes: O26.873 - Cervical shortening, third trimester; O34.33 - Maternal care for cervical incompetence, third trimester (2) PPROM (3) Premature labor ICD Codes: O60.00 - labor without delivery, unspecified trimester Assessment and Plan 37 year old at 34 weeks gestation,GBS-, complicated by cervical incompetence with funneling, gestational diabetes, and premature rupture of membranes admitted for labor Intrauterine , heart tones category 1, reassuring -Cervical exam: -100/-2 -Labor augmented with Pitocin, now at 18, titrate per protocol -Contractions occurring every 2-3 minutes -Epidural in place -Continue routine antepartum care -Expect vaginal delivery -NICU team notified of delivery Penelope Moran MD R2 May 14, 2017 14:06
--- NOTE | 2017-05-14 15:14 | PD.LABORPN ---
Subjective Subjective Doing okay. Juve regularly. Objective Vital Signs Vital Signs Date Time Temp Pulse Resp B/P (MAP) Pulse Ox O2 Delivery O2 Flow Rate FiO2 05/14/17 10:20 96 90/42 (58) 05/14/17 10:00 102 105/62 (76) 05/14/17 09:40 103 97/51 (66) 05/14/17 09:00 95 106/71 (83) 05/14/17 08:40 101 108/70 (83) 05/14/17 08:20 107 108/58 (75) 05/14/17 08:00 97 101/66 (78) 05/14/17 07:40 92 106/66 (79) 05/14/17 07:24 17 05/14/17 07:23 97.6 05/14/17 07:20 94 108/69 (82) Objective Pelvic Exam: Cervix: Mid position Dilatation: 8 cm Effacement: 100% Station: -2 Presentation: Cephalic Membranes: Ruptured Uterine Contractions: q2-3 mins FHT's: Category: 1 Baseline: 130-135 Reactive: Up to 150 Variability: Moderate Decels: None Weeks Gestation: 34 Pt started active labor?: Yes Active labor start date: May 14, 2017 Active labor start time: 12:30 Medical induction of labor?: Yes Medical induction start date: May 14, 2017 Medical induction start time: 12:30 Artificial rupture of membrane: No Assessment/Plan Problem List: (1) Short cervix with cervical cerclage in third trimester, antepartum ICD Codes: O26.873 - Cervical shortening, third trimester; O34.33 - Maternal care for cervical incompetence, third trimester (2) PPROM (3) Premature labor ICD Codes: O60.00 - labor without delivery, unspecified trimester Assessment and Plan 37 year old at 34 weeks gestation,GBS-, complicated by cervical incompetence with funneling, gestational diabetes, and premature rupture of membranes admitted for labor Intrauterine , heart tones category 1, reassuring -Cervical exam: 8/100/-2 -Labor augmented with Pitocin, now at 21 -Contractions occurring every 2-3 minutes -Epidural in place -Continue routine antepartum care -Expect vaginal delivery -NICU team notified of delivery Penelope Moran MD R2 May 14, 2017 15:14
[2017-05-14] MEDS ORDERED: MEASLES, MUMPS, RUBELLA VACCINE 0.5 ML VIAL SQ ONE (16:00)
[2017-05-14] MEDS ORDERED: DIPHTH/TETANUS/ACEL PERTUSSIS (BOOSTER) 0.5 ML VIAL/PFS IM ONE (16:00)
[2017-05-14] MEDS ORDERED: EPIDURAL-NALOXONE HCL 0.4 MG/ML AMP IV PUSH PRN (21:00)
[2017-05-14] MEDS ORDERED: EPIDURAL-DIPHENHYDRAMINE HCL 50 MG CAP PO PRN (21:00)
[2017-05-14] MEDS ORDERED: EPIDURAL-DIPHENHYDRAMINE HCL 50 MG/ML VIAL IV PUSH PRN (21:00)
[2017-05-14] MEDS ORDERED: EPIDURAL-NO SYSTEMIC NARCOTICS PRN (21:00)
[2017-05-14] MEDS ORDERED: EPIDURAL-DO NOT ADMINISTER ANTICOAGULANTS PRN (21:00)
--- NOTE | 2017-05-14 22:17 | PD.OB.DELI ---
Procedure Note Section Procedure Pre Op Diagnosis: (1) Failed induction of labor (2) PPROM Post Op Diagnosis: (1) PPROM (2) Failed induction of labor Performed by Dion Galvez MD Procedure: Primary Low Transverse Sec Indication for delivery: Other (Failure to progress with cervical change) Previous condition: Other (Cervical cerclage) Informed consent obtained: For anesthesia Confirmed correct: Patient, Procedure, Site, Time-out taken Anesthesia: Epidural Medication prior to procedure: As documented in eMAR, Antacids Monitoring during procedure: Blood pressure monitoring Urinary catheter: Inserted using sterile technique Sterile preparation: Duraprep Position: Supine Operative Features Skin Incision: Transverse Uterine Incision: Low transverse w/knife / blunt ext Membranes Ruptured: Previously Presentation: Vertex Delivery date: May 14, 2017 Delivery time: 21:24 Delivery of : Uneventful : Male One Minute : 9 Five Minute : 9 Weight: 2740g Status of infant: Viable, Cord blood, Umbilical cord, Nursery present Placenta delivered: Intact, Sent to pathology Medications: Antibiotics, Oxytocin Estimated blood loss: 500cc Procedure tolerated: Well Maternal Condition: Stable Baby Complications: Other (Prematurity) Condition: Stable Eko,Penelope Julien MD R2 May 14, 2017 22:17
[2017-05-14] MEDS ORDERED: ACETAMINOPHEN 325 MG TAB PO PRN ×2 (22:30→22:45)
[2017-05-14] MEDS ORDERED: WITCH HAZEL 50%/GLYCERIN 12.5% 40 PAD JAR TOPICAL PRN (22:30)
[2017-05-14] MEDS ORDERED: ONDANSETRON ODT 4 MG TAB PO PRN (22:30)
[2017-05-14] MEDS ORDERED: ZOLPIDEM TARTRATE 5 MG TAB PO PRN (22:30)
[2017-05-14] MEDS ORDERED: oxyCODONE/ACETAMINOPHEN 5 MG/325 MG TAB PO PRN ×2 (22:30)
[2017-05-14] MEDS ORDERED: IBUPROFEN 800 MG TAB PO PRN (22:30)
[2017-05-14] MEDS ORDERED: BENZOCAINE 20% TOPICAL SPRAY 60 ML CAN TOPICAL PRN (22:30)
[2017-05-14] MEDS ORDERED: DOCUSATE SODIUM 50 MG/SENNA 8.6 MG TAB PO PRN (22:30)
[2017-05-14] MEDS ORDERED: ALUMINUM/MAGNESIUM/SIMETH 30 ML CUP PO PRN (22:30)
[2017-05-14] MEDS ORDERED: OXYTOCIN 30 UNITS-500ML PREMIX 500 ML IV ONE (22:45)
[2017-05-14] MEDS ORDERED: PROMETHAZINE HCL 25 MG TAB PO PRN (22:45)
[2017-05-14] MEDS ORDERED: KETOROLAC TROMETHAMINE 60 MG/2 ML (IM) VIAL IM PRN (22:45)
--- NOTE | 2017-05-14 22:55 | MP ---
cc: ANA ROSA GALVEZ MD DATE OF SURGERY: 05/14/2017 PREOPERATIVE DIAGNOSIS: 1. 34 week intrauterine with premature rupture of membranes, labor induction, failed trial of labor with labor dystocia at 8 cm. 2. Desires sterilization. POSTOPERATIVE DIAGNOSIS: 1. 34 week intrauterine with premature rupture of membranes, labor induction, failed trial of labor with labor dystocia at 8 cm. 2. Desires sterilization. PROCEDURE PERFORMED: Primary low transverse section, bilateral tubal ligation. SURGEON Britni Galvez MD. HAND II CUTTER: Dr. Moran. ANESTHESIA Epidural. PRE-OP NOTE The patient is a 37 year-old black female, G6, P2 at 34 weeks gestation. Rupture of membranes at 33 weeks, and has remained here on Labor and Delivery for one week, getting to the 34 week belinda, where she could have her cerclage cut out and allow Labor and Delivery. That was performed for the patient. She was augmented with Pitocin and she changed her cervix to 8 cm and made no further progress in six hours, with increasing doses of Pitocin with internal monitors. She was given that much time because she is a multip and had three deliveries but she would not make progress and we figured that any further labor with put her at risk for uterine rupture if there is true labor dystocia. She was taken to surgery for transabdominal delivery. PROCEDURE The patient was taken to the operating room and placed in supine position on the operating table. After adequate epidural anesthesia administered, she was prepped and draped for abdominal surgery. Pfannenstiel incision was made in the lower abdomen and carried through to the fascia sharply, the fascia dissected off the rectus muscle. The rectus split in the midline. The peritoneal cavity was entered sharply and the incision was extended superiorly and inferiorly. A bladder blade was placed in the lower edge of the incision. The vesicouterine peritoneum was then reflected off the lower uterine segment and placed on the bladder blade. A transverse hysterotomy was made and extended bluntly bilaterally. Clear fluid noted. A male infant was delivered at 21:24, weight 2740 grams, Apgars 9 and 9. No complications with delivery. Cord pH was obtained and is pending, and cord gas obtained. Placenta manually extracted. It was densely adherent in the low uterine segment but it was removable. The uterus exteriorized. Hysterotomy closed with a running layer of 0 chromic followed by imbricating suture of same. Hemostasis was achieved with a stick tie. The bladder reapproximated using 3-0 Vicryl in a running suture. Then the tubal was performed. The left tube was grasped with a Bernard clamp and elevated. The hemostat passed through the mesosalpinx and two catgut sutures pulled through that window in the mesosalpinx and the tube was tied 4-1/2. In the intervening segment, it sized out with Metzenbaum scissors. The tissue was sent to pathology. The same was done on the opposite side without difficulty. Hemostasis was achieved. The uterus was elevated and blood suctioned from the cul-de-sac gutters. The uterus replaced in the peritoneal cavity. The parietal peritoneum closed in running layers of 2-0 Vicryl. Muscles reapproximated with stick ties of chromic. The fascia closed in running layer of 0 Vicryl. The subcutaneous tissue was sewn together with a running 3-0 plain catgut suture. The skin closed with 3-0 Monocryl subcuticular stitch. Pressure dressing applied. ESTIMATED BLOOD LOSS: 500 cc. COMPLICATIONS: None. Sponge and needle count correct x2. The patient was taken to the recovery room in stable condition, baby to the NICU being 34 weeks. MD SERGIO Macario/DARRICK /10:23 PM /10:30 PM
[2017-05-15] VITALS (10 sets, daily range): BP systolic 115–133; BP diastolic 72–82; PULSE 85–108; RESP 14–18; TEMP 98–99; O2SAT 99–100
[2017-05-15] MEDS: oxyCODONE/ACETAMINOPHEN 5 MG/325 MG TAB PO PRN ×4 (01:43→18:04)
[2017-05-15] MEDS: LACTATED RINGER'S 1000 ML INJ 1,000 ML IV SCH ×2 (03:31→07:51)
[2017-05-15] MEDS: IBUPROFEN 600 MG TAB PO PRN ×3 (05:23→20:30)
[2017-05-15 05:56] LABS: AUTOMATED NEUTROPHIL # 7.1 TH/MM3 (1.8-7.7); BASOPHIL % 0.3 % (0.0-2.0); EOSINOPHIL % 0.5 % (0.0-4.0); HEMATOCRIT 28.5 % (35.0-46.0); HEMO FLAGS DIFF FINAL; LYMPH % 19.1 % (9.0-44.0); LYMPHOCYTE # 1.8 TH/MM3 (1.0-4.8); MEAN CELL VOLUME 86.6 FL (80.0-100.0); MEAN CORPUSCULAR HEMOGLOBIN 27.5 PG (27.0-34.0); MEAN CORPUSCULAR HGB CONC 31.8 % (32.0-36.0); MONO % 6.5 % (0.0-8.0); NEUT % 73.6 % (16.0-70.0); PLATELET COUNT 181 TH/MM3 (150-450); RED BLOOD COUNT 3.29 MIL/MM3 (4.00-5.30); RED CELL DISTRIBUTION WIDTH 19.7 % (11.6-17.2); WHITE BLOOD COUNT 9.7 TH/MM3 (4.0-11.0)
[2017-05-15] MEDS ORDERED: OXYTOCIN 30 UNITS-500ML PREMIX 500 ML IV PRN (08:45)
[2017-05-15] MEDS ORDERED: SODIUM CHLORIDE 0.9% FLUSH 10 ML FLUSH IV FLUSH SCH ×2 (09:00)
--- NOTE | 2017-05-15 09:37 | HHI.OB ---
Subjective Post Operative Day: 1 Remarks Postoperative day #1. AFVSS overnight. Pain well-controlled. Incision clean, dry , and intact, not draining. Lochia like a period. Denies dysuria. No breast tenderness. She plans to feed baby via breast bud baby is currently receiving formula in the NICU. Appetite good. No nausea or vomiting. Negative flatus. Negative bowel movement. Plans to ambulate today. Denies fever, chills, cough, shortness of breath, chest pain, and calf pain. Otherwise, she is doing well this morning and has no other complaints. Objective Vitals/I&O Vital Signs Date Time Temp Pulse Resp B/P (MAP) Pulse Ox O2 Delivery O2 Flow Rate FiO2 05/15/17 06:00 16 05/15/17 05:00 18 05/15/17 04:00 98.6 95 18 116/72 (87) 100 05/15/17 02:43 14 05/15/17 01:57 16 05/15/17 01:00 18 05/15/17 00:30 123/82 (96) 05/15/17 00:30 98.0 96 16 99 05/14/17 23:38 98.0 05/14/17 23:30 92 20 100 05/14/17 23:29 103/66 (78) 05/14/17 23:14 18 100 05/14/17 23:14 94 24 101/62 (75) 05/14/17 22:59 19 96/58 (71) 05/14/17 22:59 92 100 05/14/17 22:45 87/54 (65) 05/14/17 22:44 98 20 88/58 (68) 100 05/14/17 22:30 96 14 94/53 (67) 100 05/14/17 22:15 97.2 88 18 100 05/14/17 22:15 89/47 (61) 05/14/17 20:30 102 119/73 (88) 05/14/17 20:00 104 110/62 (78) 05/14/17 19:30 99 112/69 (83) 05/14/17 19:21 98.2 05/14/17 19:21 18 05/14/17 19:20 99 113/71 (85) 05/14/17 19:00 101 115/69 (84) 05/14/17 18:40 96 114/72 (86) 05/14/17 18:29 97.4 05/14/17 18:21 19 05/14/17 18:20 98 119/72 (88) 05/14/17 18:10 18 05/14/17 18:00 97 109/58 (75) 05/14/17 17:45 19 05/14/17 17:40 99 110/70 (83) 05/14/17 17:30 19 05/14/17 17:20 97 104/66 (79) 05/14/17 17:12 18 05/14/17 17:00 92 111/66 (81) 05/14/17 16:30 18 05/14/17 16:20 103 115/72 (86) 05/14/17 16:00 96 115/76 (89) 05/14/17 15:53 18 05/14/17 15:50 97.9 05/14/17 15:40 93 114/77 (89) 05/14/17 10:20 96 90/42 (58) 05/14/17 10:00 102 105/62 (76) 05/14/17 09:40 103 97/51 (66) Result Diagram: 05/15/17 0509 Objective Remarks GENERAL: Well-nourished, well-developed patient. CARDIOVASCULAR: Regular rate and rhythm without murmurs, gallops, or rubs. RESPIRATORY: Breath sounds equal bilaterally. No accessory muscle use. ABDOMEN/GI: Abdomen soft, non-tender, bowel sounds present. Incision: Clean, dry and intact. Fundus: Firm, non-tender at umbilicus. GENITOURINARY: Light to moderate bleeding. EXTREMITIES: No cyanosis or edema, non-tender, without signs of DVT. Medications and IVs Current Medications Medications (Trade) Dose Ordered Sig/Lorena Route Start Time Stop Time Status Last Admin (Ambien) 5 mg HS PRN PO 05/07/17 21:00 05/12/17 22:14 (Americaine 20% Top Spr) 1 spray Q4H PRN TOPICAL 05/14/17 22:30 (Tucks Pads) 1 applic QID PRN TOPICAL 05/14/17 22:30 (Mag-Al Plus Susp Liq) 15 ml Q8H PRN PO 05/14/17 22:30 Lactated Ringer's 1,000 ml @ 100 mls/hr Q10H IV 05/15/17 03:31 05/15/17 23:30 05/15/17 07:51 Oxytocin 500 ml @ 100 mls/hr UNSCH X1 PRN IV 05/15/17 08:45 05/16/17 08:44 (NS Flush) 2 ml BID IV FLUSH 05/15/17 09:00 (NS Flush) 2 ml UNSCH PRN IV FLUSH 05/14/17 22:45 (Mylicon Chew) 80 mg QID PRN PO 05/14/17 22:45 (Tylenol) 650 mg Q6H PRN PO 05/14/17 22:45 (Motrin) 600 mg Q6H PRN PO 05/14/17 22:45 05/15/17 05:23 (Toradol Inj) 30 mg Q6H PRN IM 05/14/17 22:45 05/15/17 22:44 05/15/17 00:24 (Percocet 5-325 Mg) 1 tab Q4H PRN PO 05/14/17 22:45 05/15/17 01:43 (Percocet 5-325 Mg) 2 tab Q4H PRN PO 05/14/17 22:45 Cefazolin Sodium 1000 mg/Sodium Chloride 100 ml @ 200 mls/hr Q8H IV 05/15/17 05:00 05/15/17 13:29 05/15/17 05:19 (Jennifer-Colace) 2 tab Q12H PRN PO 05/14/17 22:45 (Phenergan) 25 mg Q6H PRN PO 05/14/17 22:45 Miscellaneous Information NO SYSTEMIC NARCOTICS TO BE GIVEN FO... UNSCH PRN .XX 05/14/17 21:00 05/15/17 20:59 (Narcan Inj) 0.4 mg UNSCH PRN IV PUSH 05/14/17 21:00 05/15/17 20:59 (Benadryl Inj) 25 mg Q6H PRN IV PUSH 05/14/17 21:00 05/15/17 20:59 (Benadryl) 50 mg Q6H PRN PO 05/14/17 21:00 05/15/17 20:59 05/15/17 04:05 Miscellaneous Information ALL NURSING DEPARTMENTS UNSCH PRN .XX 05/14/17 21:00 05/15/17 20:59 Assessment/Plan Problem List: (1) Short cervix with cervical cerclage in third trimester, antepartum ICD Codes: O26.873 - Cervical shortening, third trimester; O34.33 - Maternal care for cervical incompetence, third trimester (2) PPROM (3) Premature labor ICD Codes: O60.00 - labor without delivery, unspecified trimester Assessment and Plan 37-year-old delivered by due to failure to progress on 05/14/17 , POD#1. was complicated by cervical incompetence with funneling requiring a second large, premature rupture of membranes, and gestational diabetes. -Continue routine care -Percocet and Motrin PRN pain -Pericolase PRN for constipation -Continue bedside glucose checks -Diabetic diet -Encouraged OOB. Advised pelvic rest for 6 wks -Will need a follow-up appointment within 1 week for incision check -Re: ctrl - fallopian tubes were tied after Discussed with Dr. Jauregui Discharge Planning Discharge date unclear at this time. Will depend heavily on patient's response to treatment Penelope Moran MD R2 May 15, 2017 09:37
[2017-05-15] MEDS: DOCUSATE SODIUM 50 MG/SENNA 8.6 MG TAB PO PRN ×2 (10:53→23:09)
[2017-05-15] MEDS: SIMETHICONE 80 MG CHEWABLE TAB PO PRN (20:30)
[2017-05-16] MEDS: oxyCODONE/ACETAMINOPHEN 5 MG/325 MG TAB PO PRN ×4 (02:15→20:46)
[2017-05-16] MEDS: IBUPROFEN 600 MG TAB PO PRN ×4 (02:15→20:45)
--- NOTE | 2017-05-16 07:25 | HHI.OB ---
Subjective Post Operative Day: 2 Remarks AFVSS overnight. Pain well-controlled. Incision clean, dry, and intact, not draining. Lochia less than a period. Denies dysuria. Breast tenderness. She is pumping breast milk for baby who is also receiving formula in the NICU. Appetite good. No nausea or vomiting. Positive flatus. Negative bowel movement. Ambulating. Denies fever, chills, cough, shortness of breath, chest pain, and calf pain. Otherwise, she is doing well this morning and has no other complaints. Objective Vitals/I&O Vital Signs Date Time Temp Pulse Resp B/P (MAP) Pulse Ox O2 Delivery O2 Flow Rate FiO2 05/15/17 23:41 85 16 133/80 (97) 05/15/17 19:49 99.0 108 18 05/15/17 19:49 116/74 (88) 05/15/17 18:05 98.3 18 05/15/17 18:05 98 115/78 (90) Result Diagram: 05/15/17 0509 Objective Remarks GENERAL: Well-nourished, well-developed patient. CARDIOVASCULAR: Regular rate and rhythm without murmurs, gallops, or rubs. RESPIRATORY: Breath sounds equal bilaterally. No accessory muscle use. ABDOMEN/GI: Abdomen soft, non-tender, bowel sounds present. Incision: Clean, dry and intact. Fundus: Firm, mildly tender to palpation below umbilicus. GENITOURINARY: Light to moderate bleeding. EXTREMITIES: No cyanosis or edema, non-tender, without signs of DVT. Medications and IVs Current Medications Medications (Trade) Dose Ordered Sig/Lorena Route Start Time Stop Time Status Last Admin (Ambien) 5 mg HS PRN PO 05/07/17 21:00 05/12/17 22:14 (Americaine 20% Top Spr) 1 spray Q4H PRN TOPICAL 05/14/17 22:30 (Tucks Pads) 1 applic QID PRN TOPICAL 05/14/17 22:30 (Mag-Al Plus Susp Liq) 15 ml Q8H PRN PO 05/14/17 22:30 Oxytocin 500 ml @ 100 mls/hr UNSCH X1 PRN IV 05/15/17 08:45 05/16/17 08:44 (NS Flush) 2 ml BID IV FLUSH 05/15/17 09:00 (NS Flush) 2 ml UNSCH PRN IV FLUSH 05/14/17 22:45 (Mylicon Chew) 80 mg QID PRN PO 05/14/17 22:45 05/15/17 20:30 (Tylenol) 650 mg Q6H PRN PO 05/14/17 22:45 (Motrin) 600 mg Q6H PRN PO 05/14/17 22:45 05/16/17 02:15 (Percocet 5-325 Mg) 1 tab Q4H PRN PO 05/14/17 22:45 05/15/17 10:54 (Percocet 5-325 Mg) 2 tab Q4H PRN PO 05/14/17 22:45 05/16/17 02:15 (Jennifer-Colace) 2 tab Q12H PRN PO 05/14/17 22:45 05/15/17 23:09 (Phenergan) 25 mg Q6H PRN PO 05/14/17 22:45 Assessment/Plan Problem List: (1) Short cervix with cervical cerclage in third trimester, antepartum ICD Codes: O26.873 - Cervical shortening, third trimester; O34.33 - Maternal care for cervical incompetence, third trimester (2) PPROM (3) Premature labor ICD Codes: O60.00 - labor without delivery, unspecified trimester Assessment and Plan 37-year-old delivered by due to failure to progress on 05/14/17 , POD#2. was complicated by cervical incompetence with funneling requiring a second large, premature rupture of membranes, and gestational diabetes. -Continue routine care -Percocet and Motrin PRN pain -Pericolase PRN for constipation -Continue bedside glucose checks -Diabetic diet -Encouraged OOB. Advised pelvic rest for 6 wks -Will need a follow-up appointment within 1 week for incision check -Re: ctrl - fallopian tubes were tied after Discussed with Dr. Jauregui Discharge Planning Discharge tomorrow 05/17 Penelope Moran MD R2 May 16, 2017 07:25
[2017-05-16 08:57] VITALS: BP 126/75; PULSE 103; RESP 16; TEMP 98.1
[2017-05-16] MEDS: DOCUSATE SODIUM 50 MG/SENNA 8.6 MG TAB PO PRN (14:27)
[2017-05-16 15:07] VITALS: PULSE 108
[2017-05-16 23:00] VITALS: BP 127/73; PULSE 106; RESP 18; TEMP 98.2
[2017-05-17] MEDS: DOCUSATE SODIUM 50 MG/SENNA 8.6 MG TAB PO PRN (01:28)
[2017-05-17] MEDS: oxyCODONE/ACETAMINOPHEN 5 MG/325 MG TAB PO PRN ×3 (01:28→12:47)
--- NOTE | 2017-05-17 05:33 | HHI.DCPOC ---
Discharge Care Plan Diagnosis: (1) Short cervix with cervical cerclage in second trimester, antepartum (2) Incompetent cervix (3) Failed induction of labor (4) delivery delivered Report Symptoms to Your Doctor -Temperature above 100.5 degrees -Redness, of incision or excessive or foul smelling drainage -Unusual pain or calf pain -Increased vaginal bleeding -Painful or difficulty urinating -Feelings of extreme sadness or anxiety after 2 weeks Goals to Promote Your Health * To prevent worsening of your condition and complications * To maintain your health at the optimal level Directions to Meet Your Goals Take your medications as prescribed Follow your dietary instruction Follow activity as directed Ensure plenty of rest for recovery Drink fluids for hydration Keep your appointments as scheduled Take your immunizations and boosters as scheduled If your symptoms worsen call your PCP, if no PCP go to Urgent Care Center or Emergency Room Smoking is Dangerous to Your Health. Avoid second hand smoke Call the 24-hour crisis hotline for domestic abuse at Penelope Moran MD R2 May 17, 2017 05:33
[2017-05-17] MEDS ORDERED: IBUP-232 PO (05:36)
[2017-05-17] MEDS ORDERED: PERI PO (05:36)
[2017-05-17] MEDS ORDERED: OXYC1TAB63 PO (05:36)
[2017-05-17] MEDS: IBUPROFEN 600 MG TAB PO PRN (07:51)
[2017-05-17 09:10] VITALS: BP 126/73; PULSE 105; RESP 20; TEMP 98.1
--- NOTE | 2017-05-17 11:19 | HHI.OB ---
Subjective Post Operative Day: 3 Remarks AFVSS overnight. Pain well-controlled. Incision clean, dry, and intact, not draining. Lochia less than a period. Denies dysuria. Denies breast tenderness. She is pumping breast milk for baby who is also receiving formula in the NICU. Appetite good. No nausea or vomiting. Positive flatus. Positive bowel movement. Ambulating. Denies fever, chills, cough, shortness of breath, chest pain, and calf pain. Otherwise, she is doing well this morning and has no other complaints. She is ready to go home. Objective Vitals/I&O Vital Signs Date Time Temp Pulse Resp B/P (MAP) Pulse Ox O2 Delivery O2 Flow Rate FiO2 05/17/17 09:10 98.1 105 20 126/73 (90) 05/16/17 23:00 98.2 106 18 127/73 (91) 05/16/17 15:07 108 Result Diagram: 05/15/17 0509 Objective Remarks GENERAL: Well-nourished, well-developed patient. CARDIOVASCULAR: Regular rate and rhythm without murmurs, gallops, or rubs. RESPIRATORY: Breath sounds equal bilaterally. No accessory muscle use. ABDOMEN/GI: Abdomen soft, non-tender, bowel sounds present. Incision: Clean, dry and intact. Fundus: Firm, mildly tender to palpation below umbilicus. GENITOURINARY: Light to moderate bleeding. EXTREMITIES: No cyanosis or edema, non-tender, without signs of DVT. Medications and IVs Current Medications Medications (Trade) Dose Ordered Sig/Lorena Route Start Time Stop Time Status Last Admin (Ambien) 5 mg HS PRN PO 05/07/17 21:00 05/12/17 22:14 (Americaine 20% Top Spr) 1 spray Q4H PRN TOPICAL 05/14/17 22:30 (Tucks Pads) 1 applic QID PRN TOPICAL 05/14/17 22:30 (Mag-Al Plus Susp Liq) 15 ml Q8H PRN PO 05/14/17 22:30 (NS Flush) 2 ml BID IV FLUSH 05/15/17 09:00 (NS Flush) 2 ml UNSCH PRN IV FLUSH 05/14/17 22:45 (Mylicon Chew) 80 mg QID PRN PO 05/14/17 22:45 05/15/17 20:30 (Tylenol) 650 mg Q6H PRN PO 05/14/17 22:45 (Motrin) 600 mg Q6H PRN PO 05/14/17 22:45 05/17/17 07:51 (Percocet 5-325 Mg) 1 tab Q4H PRN PO 05/14/17 22:45 05/15/17 10:54 (Percocet 5-325 Mg) 2 tab Q4H PRN PO 05/14/17 22:45 05/17/17 07:52 (Jennifer-Colace) 2 tab Q12H PRN PO 05/14/17 22:45 05/17/17 01:28 (Phenergan) 25 mg Q6H PRN PO 05/14/17 22:45 Assessment/Plan Problem List: (1) Short cervix with cervical cerclage in third trimester, antepartum ICD Codes: O26.873 - Cervical shortening, third trimester; O34.33 - Maternal care for cervical incompetence, third trimester (2) PPROM (3) Premature labor ICD Codes: O60.00 - labor without delivery, unspecified trimester Assessment and Plan 37-year-old delivered by due to failure to progress on 05/14/17 , POD#3. was complicated by cervical incompetence with funneling requiring a cerclage, premature rupture of membranes, and gestational diabetes. -Continue routine care -Percocet and Motrin PRN pain -Pericolase PRN for constipation -Continue bedside glucose checks -Diabetic diet -Encouraged OOB. Advised pelvic rest for 6 wks -Will need a follow-up appointment within 1 week for incision check -Re: ctrl - fallopian tubes were ligated after Discussed with Dr. Galvez Discharge Planning Discharge home today Penelope Moran MD R2 May 17, 2017 11:19
[2017-05-17] MEDS: SIMETHICONE 80 MG CHEWABLE TAB PO PRN (12:47)
== END 2017-05-17 14:12 | disposition home or self-care (01) | DRG 765 ==
LOC: HOBED 08:38 → H2EA 11:00 → H2EB 05-14 01:17 → H1EA 05-14 23:48
PROVIDERS: ADMIT Obstetrics & Gynecology Maternal & Fetal Medicine; ATTEND Obstetrics & Gynecology Maternal & Fetal Medicine
PROC: 0UCC7ZZ Extirpation of Matter from Cervix, Via Natural or Artificial Opening (ICD-10-PCS; 2017-05-07)
PROC: 10D00Z1 Extraction of Products of Conception, Low, Open Approach (ICD-10-PCS; principal; 2017-05-14)
PROC: 0UB70ZZ Excision of Bilateral Fallopian Tubes, Open Approach (ICD-10-PCS; 2017-05-14)
PROC: 10H07YZ Insertion of Other Device into Products of Conception, Via Natural or Artificial Opening (ICD-10-PCS; 2017-05-14)
PROC: 3E0R3BZ Introduction of Anesthetic Agent into Spinal Canal, Percutaneous Approach (ICD-10-PCS; 2017-05-14)
PROC: 00HU33Z Insertion of Infusion Device into Spinal Canal, Percutaneous Approach (ICD-10-PCS; 2017-05-14)
PROC: 0UCC7ZZ Extirpation of Matter from Cervix, Via Natural or Artificial Opening (ICD-10-PCS; 2017-05-14)
PROC: 0UQC7ZZ Repair Cervix, Via Natural or Artificial Opening (ICD-10-PCS; 2017-05-14)
DX: O26.873 Cervical shortening, third trimester (principal); O60.14X0 Preterm labor third trimester with preterm delivery third trimester, not applicable or unspecified; O24.429 Gestational diabetes mellitus in childbirth, unspecified control; O71.3 Obstetric laceration of cervix; O42.913 Preterm premature rupture of membranes, unspecified as to length of time between rupture and onset of labor, third trimester; O34.32 Maternal care for cervical incompetence, second trimester; O66.40 Failed trial of labor, unspecified; Z37.0 Single live birth; Z3A.34 34 weeks gestation of pregnancy; Z30.2 Encounter for sterilization
CPT/HCPCS: 59025; 76815; 76816; 80053; 80307; 81001; 82948; 84112; 85025; 86850; 86900; 86901; 87081; 87150; 87491; 87591; 88302; 88307; J0290; J0690; J0702; J1885; J2590; J3010; J3475; J7120; Q0163